=== PATIENT | female | born 1960 | race African-American/Black ===

== ENCOUNTER 2017-04-02 11:50 | Inpatient (IN) | payer MEDICARE ==
[~2017-04-02] VITALS: Ht 162.6 cm; Wt 113.4 kg
[~2017-04-02 11:50] MED LIST: ALBUTEROL SULF8.5 GM INH; AZITHROMYCIN250 MG ORAL; DHEA TABLET1 EACH PO; DILAUDID2 MG ORAL; FOLIC ACID1 MG ORAL; IBUPROFEN800 MG ORAL; KEFLEX500 MG ORAL; METRONIDAZOLE500 MG ORAL; PHENERGAN25 M1 ORAL; PREDISONE PO; PREDNISONE5 MG ORAL; VERAPAMIL ER240 MG ORAL; VITAMIN D1000 UNI2 PO
[2017-04-02 12:10] VITALS: BP 185/98
[2017-04-02 12:52] LABS: BASOPHILS % (AUTO) 0.9 % (0.0-2.0); EOSINOPHILS % (AUTO) 2.3 % (0.0-3.0); LYMPHOCYTES % (AUTO) 31.6 % (20.0-45.0); MEAN CORPUSCULAR HEMOGLOBIN 26.6 PG (27.0-31.0); MEAN CORPUSCULAR HGB CONC 30.7 G/DL (32.0-36.0); MEAN CORPUSCULAR VOLUME 87 FL (80-99); MEAN PLATELET VOLUME 8.7 FL (6.5-10.1); NEUTROPHILS % (AUTO) 58.2 % (45.0-75.0); PLATELET COUNT 315 K/UL (150-450); RED BLOOD COUNT 4.92 M/UL (4.20-5.40); RED CELL DISTRIBUTION WIDTH 13.5 % (11.6-14.8); WHITE BLOOD COUNT 9.7 K/UL (4.8-10.8)
[2017-04-02 13:02] LABS: TROPONIN I < 0.30 ng/mL (<=0.30)
--- NOTE | 2017-04-02 13:02 | Emergency Room Report ---
History of Present Illness General Chief Complaint: Headache Source: Patient, Medical Record Present Illness HPI Patient presents with complaints of headache, chest pain Also has a neuropathy sensation in both of her hands Patient reports that in the past when she gets breakthrough pain like this she requires Phenergan and Dilaudid Has not had to go to the emergency room very frequently She does get pain medications for home by primary physician Headache is a throbbing pain in the forehead area 03/25 it has slowly been worsening over the past several days Chest pain is intermittent at this time pain free however she does get tingling in both of her fingers as well Denies any diarrhea denies any fall or trauma denies any focal weakness Allergies: Coded Allergies: LATEX (Verified Allergy, Shortness of Breath, 10/28/13) Patient History Past Medical History: see triage record Pertinent Family History: none Last Menstrual Period: 4 years ago Reviewed Nursing Documentation: PMH: Agreed, PSxH: Agreed Nursing Documentation-PMH Past Medical History: No History, Except For Hx Cardiac Problems: Yes - MITRAL VALVE PROLAPSE,CHRONIC PAIN Hx Hypertension: Yes Hx Pacemaker: No Hx Asthma: Yes Hx COPD: No Hx Diabetes: No Hx Cancer: No Hx Gastrointestinal Problems: No Hx Dialysis: No Hx Neurological Problems: Yes - PSORIATIC ARTHRITIC Hx Cerebrovascular Accident: No Hx Seizures: No Review of Systems All Other Systems: negative except mentioned in HPI Physical Exam Vital Signs Date Time Temp Pulse Resp B/P Pulse Ox O2 Delivery O2 Flow Rate FiO2 04/02/17 11:59 97.9 85 18 172/97 95 Room Air Sp02 EP Interpretation: reviewed, normal General Appearance: no apparent distress Head: normocephalic, atraumatic Eyes: bilateral eye EOMI, bilateral eye PERRL ENT: hearing grossly normal, normal pharynx, TMs + canals normal, uvula midline Neck: full range of motion, supple, no meningismus, no bony tend Respiratory: lungs clear, normal breath sounds, no rhonchi, no respiratory distress, no retraction, no accessory muscle use Cardiovascular #1: normal peripheral pulses, regular rate, rhythm, no edema, no gallop, no JVD, no murmur Gastrointestinal: normal bowel sounds, non tender, soft, no mass, no organomegaly, non-distended, no guarding, no hernia, no pulsatile mass, no rebound Genitourinary: no CVA tenderness Musculoskeletal: normal inspection Neurologic: oriented x3, responsive, youth worker III-XII nml as tested, motor strength/ tone normal, sensory intact Psychiatric: mood/affect normal Skin: normal color, no rash, warm/dry, palpation normal Lymphatic: normal inspection, no adenopathy Medical Decision Making Diagnostic Impression: Primary Impression: Hypertensive urgency, malignant ER Course Patient is a fairly complex patient with multiple differential to consideration including but not limited to cardiac cardiopulmonary and vascular emergencies After initial intervention and observation patient continues to complain of Headache and general weakness patient feels her heart and blood pressure elevated as well Given the requirement for multiple interventions patient is admitted for further care Labs Test 04/02/17 12:30 White Blood Count 9.7 K/UL (4.8-10.8) Red Blood Count 4.92 M/UL (4.20-5.40) Hemoglobin 13.1 G/DL (12.0-16.0) Hematocrit 42.6 % (37.0-47.0) Mean Corpuscular Volume 87 FL (80-99) Mean Corpuscular Hemoglobin 26.6 PG (27.0-31.0) Mean Corpuscular Hemoglobin Concent 30.7 G/DL (32.0-36.0) Red Cell Distribution Width 13.5 % (11.6-14.8) Platelet Count 315 K/UL (150-450) Mean Platelet Volume 8.7 FL (6.5-10.1) Neutrophils (%) (Auto) 58.2 % (45.0-75.0) Lymphocytes (%) (Auto) 31.6 % (20.0-45.0) Monocytes (%) (Auto) 7.0 % (1.0-10.0) Eosinophils (%) (Auto) 2.3 % (0.0-3.0) Basophils (%) (Auto) 0.9 % (0.0-2.0) Sodium Level 138 mEQ/L (135-145) Potassium Level 3.9 mEQ/L (3.4-4.9) Chloride Level 99 mEQ/L (98-107) Carbon Dioxide Level 30 mEQ/L (20-30) Anion Gap 9 (5-15) Blood Urea Nitrogen 13 mg/dL (7-23) Creatinine 0.8 mg/dL (0.5-0.9) Estimat Glomerular Filtration Rate > 60 mL/min (>60) Glucose Level 95 mg/dL (74-106) Calcium Level 9.2 mg/dL (8.6-10.2) Total Bilirubin 0.7 mg/dL (0.0-1.2) Aspartate Amino Transf (AST/SGOT) 16 U/L (5-40) Alanine Aminotransferase (ALT/SGPT) 15 U/L (3-33) Alkaline Phosphatase 52 U/L (35-104) Total Creatine Kinase 391 U/L (26-140) Creatine Kinase MB 4.0 ng/mL (< 3.8) Creatine Kinase MB Relative Index 1.0 Troponin I < 0.30 ng/mL (<=0.30) Total Protein 7.4 g/dL (6.6-8.7) Albumin 4.1 g/dL (3.5-5.2) Globulin 3.3 g/dL Albumin/Globulin Ratio 1.2 (1.0-2.7) Lipase 17 U/L (< 60) Rhythm Strip Diag. Results EP Interpretation: yes Rate: 78 Rhythm: NSR, no PVC's, no ectopy Chest X-Ray Diagnostic Results Chest X-Ray Diagnostic Results : Chest X-Ray Ordered: Yes # of Views/Limited/Complete: 1 View Indication: Chest Pain EP Interpretation: Yes Interpretation: no consolidation, no effusion, no pneumothorax Impression: No acute disease Interpreting ER Provider: tori jasmine do CT/MRI/US Diagnostic Results CT/MRI/US Diagnostic Results : Impression CT head no acute disease Last Vital Signs Date Time Temp Pulse Resp B/P Pulse Ox O2 Delivery O2 Flow Rate FiO2 04/02/17 11:59 97.9 85 18 172/97 95 Room Air Status: improved Disposition: ADMITTED INPATIENT Condition: Serious Referrals: Juma Hubbard MD (PCP) TORI JASMINE D.O. Apr 02, 2017 13:02
[2017-04-02 13:05] LABS: ALANINE AMINOTRANSFERASE 15 U/L (3-33); ALBUMIN/GLOBULIN RATIO 1.2 (1.0-2.7); ANION GAP 9 (5-15); ASPARTATE AMINO TRANSFERASE 16 U/L (5-40); CALCIUM 9.2 mg/dL (8.6-10.2); CARBON DIOXIDE 30 mEQ/L (20-30); CHLORIDE 99 mEQ/L (98-107); CREATININE 0.8 mg/dL (0.5-0.9); GLOMERULAR FILTRATION RATE > 60 mL/min (>60); HEMOLYSIS 1; LIPASE 17 U/L (< 60); POTASSIUM 3.9 mEQ/L (3.4-4.9); SODIUM 138 mEQ/L (135-145); TOTAL PROTEIN 7.4 g/dL (6.6-8.7)
[2017-04-02] MEDS ORDERED: DiphenhydrAMINE 50mg/ml Inj IVP ONE (13:45)
[2017-04-02 14:05] VITALS: BP 159/90
[2017-04-02] MEDS ORDERED: ISOSORBIDE MONO30 M1 PO (14:59)
[2017-04-02] MEDS ORDERED: LOSARTAN-HCTZ1 EACH ORAL (14:59)
[2017-04-02] MEDS ORDERED: CYCLOBENZAPRINE10 MG ORAL (14:59)
[2017-04-02] MEDS ORDERED: Miralax 17gm pkt ORAL PRN (15:15)
[2017-04-02] MEDS ORDERED: DuoNeb 0.5-3(2.5)mg/3ml neb HHN PRN (15:15)
[2017-04-02] MEDS ORDERED: Enalaprilat 2.5mg/2ml Inj IV PRN (15:15)
[2017-04-02] MEDS ORDERED: Nitroglycerin Subl 0.4mg tab (Bottle Of 25) SL PRN (15:15)
[2017-04-02] MEDS ORDERED: Diltiazem 25mg/5ml IV PRN (15:15)
--- NOTE | 2017-04-02 15:43 | Diagnostic Imaging Report ---
Indication: Chest pain Technique: One view of the chest Comparison: 10/31/2013 Findings: Better inspiration currently. The heart is borderline enlarged. No definite infiltrates, effusions, or congestion Impression: No acute process
[2017-04-02] MEDS ORDERED: Cyclobenzaprine 10mg Tab ORAL PRN (16:30)
--- NOTE | 2017-04-02 16:58 | History & Physical ---
History and Physical History & Physicial HISTORY AND PHYSICAL Patient: EDEN RODRIGUEZ [facility] Rec #: [id number] History and Physical History & Physicial DATE OF ADMISSION: 04/02/2017 Reason for admission: Neck pain and headache HISTORY OF PRESENT ILLNESS: The patient is a 56-year-old very delightful female with a past medical history significant for hypertension, psoriatic arthritis, staph infection, presumed obstructive sleep apnea, myositis, who presents to the [facility] complaining of severe neck and headache since midnight last night. Associated symptoms also include pain radiating to her arms. She denies CP, SOB,dizziness, n/v, palpitations, fevers, chills. Denies any cardiac problems. Shortly after initial evaluation in the emergency, she was admitted to the hospital for intractable pain and accelerated hypertension PAST MEDICAL and SURGICAL HISTORY: As above. History of myositis, presumed obstructive sleep apnea, severe osteoarthritis in joint, status post knee replacement, history of morbid obesity, and hypertension. MEDICATIONS: Medications Dose Route/Sig Max Daily Dose Days Date Category Dose Instructions Isosorbide Mononitrate Er (Isosorbide Mononitrate) 30 Mg Tab.er.24h 30 Mg PO DAILY 04/02/17 Reported Flexeril* (Cyclobenzaprine HCl) 10 Mg Tablet 10 Mg ORAL HS 04/02/17 Reported Losartan-Hctz 100-12.5 Mg Tab (HCTZ/Losartan Potassium) 1 Each Tablet 1 Tab ORAL DAILY 04/02/17 Reported Albuterol Sulfate Mdi* (Albuterol Sulfate*) 8.5 Gm Hfa.aer.ad 2 Puff INH Q4H PRN 09/14/15 Rx Motrin* (Ibuprofen) 800 Mg Tab 800 Mg ORAL THREE TIMES A DAY PRN 14 04/01/15 Rx Dhea Tablet (Prasterone (Dhea)/Calcium Carb) 1 Each Tablet 1 Each PO 10/29/14 Reported Vitamin D (Cholecalciferol (Vitamin D3)) 1,000 Unit Capsule 1,000 Unit PO DAILY 10/28/13 Reported Phenergan* (Promethazine HCl) 25 Mg Tablet 50 Mg ORAL Q6H 10/28/13 Reported Prednisone 5 Mg Tab 2.5 Mg ORAL DAILY 10/28/13 Reported Folic Acid* (Folic Acid) 1 Mg Tablet 1 Mg ORAL DAILY 10/28/13 Reported Dilaudid (Hydromorphone HCl) 2 Mg Tab 2 Mg ORAL Q4H 10/28/13 Reported Calan Sr* (Verapamil HCl) 240 Mg Tablet.er 240 Mg ORAL DAILY 10/28/13 Reported ALLERGIES: LATEX. SOCIAL HISTORY: Denies any smoking, alcohol, or drugs. FAMILY HISTORY: Denies family hx of CVA, DM, CA, AR. REVIEW OF SYSTEMS: Mostly as above. Denies any dysuria, frequency, hematuria, or hematochezia. Denies any hemoptysis or hematochezia. Denies any suicidal or homicidal ideation. Complaining about general body aches. Denies any double vision. Denies any loss of consciousness. Denies any seizure activity. PHYSICAL EXAMINATION: Date Time Temp Pulse Resp B/P Pulse Ox O2 Delivery O2 Flow Rate FiO2 04/02/17 15:10 97.8 04/02/17 14:05 85 17 159/90 99 Nasal Cannula 2.0 04/02/17 13:35 97.8 04/02/17 12:10 96.8 85 14 185/98 98 Room Air 04/02/17 11:59 97.9 85 18 172/97 95 Room Air GENERAL: The patient is awake, responsive, and in no acute distress; however, she feels very tired. HEENT: Pupils are equal and reactive to light. Anicteric. NECK: Supple. No JVD. LUNGS: Decreased air entry at the bases. No expiratory wheezes. HEART: S1 and S2. Distant heart sounds. Normal gallops. ABDOMEN: Soft, nondistended, and tender. Morbidly obese. : No CVA tenderness EXTREMITIES: No cyanosis, clubbing, or edema. NEUROLOGIC: A/O x 3; Cranial nerves II through XII are grossly intact. Motor and strength 5/5 in all extremities. Labs Test 04/02/17 12:30 White Blood Count 9.7 K/UL (4.8-10.8) Red Blood Count 4.92 M/UL (4.20-5.40) Hemoglobin 13.1 G/DL (12.0-16.0) Hematocrit 42.6 % (37.0-47.0) Mean Corpuscular Volume 87 FL (80-99) Mean Corpuscular Hemoglobin 26.6 PG (27.0-31.0) Mean Corpuscular Hemoglobin Concent 30.7 G/DL (32.0-36.0) Red Cell Distribution Width 13.5 % (11.6-14.8) Platelet Count 315 K/UL (150-450) Mean Platelet Volume 8.7 FL (6.5-10.1) Neutrophils (%) (Auto) 58.2 % (45.0-75.0) Lymphocytes (%) (Auto) 31.6 % (20.0-45.0) Monocytes (%) (Auto) 7.0 % (1.0-10.0) Eosinophils (%) (Auto) 2.3 % (0.0-3.0) Basophils (%) (Auto) 0.9 % (0.0-2.0) Sodium Level 138 mEQ/L (135-145) Potassium Level 3.9 mEQ/L (3.4-4.9) Chloride Level 99 mEQ/L (98-107) Carbon Dioxide Level 30 mEQ/L (20-30) Anion Gap 9 (5-15) Blood Urea Nitrogen 13 mg/dL (7-23) Creatinine 0.8 mg/dL (0.5-0.9) Estimat Glomerular Filtration Rate > 60 mL/min (>60) Glucose Level 95 mg/dL (74-106) Calcium Level 9.2 mg/dL (8.6-10.2) Total Bilirubin 0.7 mg/dL (0.0-1.2) Aspartate Amino Transf (AST/SGOT) 16 U/L (5-40) Alanine Aminotransferase (ALT/SGPT) 15 U/L (3-33) Alkaline Phosphatase 52 U/L (35-104) Total Creatine Kinase 391 U/L (26-140) Creatine Kinase MB 4.0 ng/mL (< 3.8) Creatine Kinase MB Relative Index 1.0 Troponin I < 0.30 ng/mL (<=0.30) Total Protein 7.4 g/dL (6.6-8.7) Albumin 4.1 g/dL (3.5-5.2) Globulin 3.3 g/dL Albumin/Globulin Ratio 1.2 (1.0-2.7) Lipase 17 U/L (< 60) ASSESSMENT: 1. Intractable neck pain and headache. 2. History of myositis with elevated CK level. 3. Accelerated Hypertension. 4. Morbid obesity. 5. History of osteoarthritis. 6. Presumed obstructive sleep apnea. 7. Psoriatic arthritis PLAN: admit telemetry pain Medications We will follow up laboratory. Continue current home medications Juma Hubbard MD Apr 02, 2017 16:58
[2017-04-02 20:08] VITALS: BP 159/88
[2017-04-02] MEDS: HYDROmorphone 2mg tab ORAL PRN (21:28)
[2017-04-02] MEDS: Heparin 5000 units/ml inj SUBQ SCH (21:32)
[2017-04-02] MEDS: Promethazine 25mg tab ORAL PRN (21:33)
[2017-04-02 23:59] VITALS: BP 141/80
[2017-04-03 04:10] VITALS: BP 122/73
[2017-04-03] MEDS: Promethazine 25mg tab ORAL PRN ×2 (06:03→17:08)
[2017-04-03] MEDS: HYDROmorphone 2mg tab ORAL PRN ×2 (06:04→17:42)
[2017-04-03 08:22] VITALS: BP 140/77
[2017-04-03 08:28] LABS: BASOPHILS % (AUTO) 0.7 % (0.0-2.0); EOSINOPHILS % (AUTO) 0.7 % (0.0-3.0); MEAN CORPUSCULAR HEMOGLOBIN 27.9 PG (27.0-31.0); MEAN CORPUSCULAR VOLUME 87 FL (80-99); MEAN PLATELET VOLUME 8.4 FL (6.5-10.1); MONOCYTES % (AUTO) 5.3 % (1.0-10.0); NEUTROPHILS % (AUTO) 60.3 % (45.0-75.0); PLATELET COUNT 289 K/UL (150-450); RED BLOOD COUNT 4.78 M/UL (4.20-5.40); RED CELL DISTRIBUTION WIDTH 13.4 % (11.6-14.8); WHITE BLOOD COUNT 10.4 K/UL (4.8-10.8)
[2017-04-03 08:33] LABS: PROTHROMBIN TIME 10.1 SEC (9.30-11.50)
[2017-04-03] MEDS: Heparin 5000 units/ml inj SUBQ SCH ×2 (08:40→20:34)
[2017-04-03 08:42] LABS: TROPONIN I < 0.30 ng/mL (<=0.30)
[2017-04-03 08:52] LABS: MAGNESIUM 1.9 mg/dL (1.7-2.5); PHOSPHORUS 3.4 mg/dL (2.5-4.8); THYROID STIMULATING HORMONE 0.398 uIU/mL (0.300-4.500)
[2017-04-03 09:00] LABS: CHOLESTEROL/HDL RATIO 2.5 (3.3-4.4); CRP QUANT 4.2 mg/dL (< 0.5)
--- NOTE | 2017-04-03 10:03 | Cardiology Progress Note ---
Assessment/Plan Assessment/Plan htn at [facility] difficult to control richie obeisty arm and hand pain not on meds for bp now but bp seem quite well controlled ?!! will observer adn add meds as necessary will repeat bp reading on both ue and lower ext to assure accurate reading use of cpap if recommended by sleep study will leave to dr herrera thank you [phone] Objective Last 24 Hour Vital Signs Date Time Temp Pulse Resp B/P Pulse Ox O2 Delivery O2 Flow Rate FiO2 04/03/17 08:22 98.1 80 22 140/77 91 Room Air 04/03/17 08:00 95 04/03/17 07:05 98.2 04/03/17 04:10 98.2 84 18 122/73 96 Nasal Cannula 2.0 04/03/17 04:00 82 04/03/17 00:00 84 04/02/17 23:59 98.7 87 19 141/80 94 Nasal Cannula 2.0 04/02/17 20:08 98.3 79 18 159/88 93 Nasal Cannula 2.0 04/02/17 20:00 83 04/02/17 17:33 83 14 155/83 97 Room Air 04/02/17 15:10 97.8 04/02/17 14:05 85 17 159/90 99 Nasal Cannula 2.0 04/02/17 13:35 97.8 04/02/17 12:10 96.8 85 14 185/98 98 Room Air 04/02/17 11:59 97.9 85 18 172/97 95 Room Air Intake and Output 04/02/17 04/03/17 19:00 07:00 Intake Total 500 ml Balance 500 ml Intake Oral 0 ml IV Total 500 ml # Voids 2 # Bowel Movements 1 Laboratory Tests Test 04/02/17 12:30 04/03/17 07:45 White Blood Count 9.7 K/UL (4.8-10.8) 10.4 K/UL (4.8-10.8) Red Blood Count 4.92 M/UL (4.20-5.40) 4.78 M/UL (4.20-5.40) Hemoglobin 13.1 G/DL (12.0-16.0) 13.4 G/DL (12.0-16.0) Hematocrit 42.6 % (37.0-47.0) 41.7 % (37.0-47.0) Mean Corpuscular Volume 87 FL (80-99) 87 FL (80-99) Mean Corpuscular Hemoglobin 26.6 PG (27.0-31.0) L 27.9 PG (27.0-31.0) Mean Corpuscular Hemoglobin Concent 30.7 G/DL (32.0-36.0) L 32.0 G/DL (32.0-36.0) Red Cell Distribution Width 13.5 % (11.6-14.8) 13.4 % (11.6-14.8) Platelet Count 315 K/UL (150-450) 289 K/UL (150-450) Mean Platelet Volume 8.7 FL (6.5-10.1) 8.4 FL (6.5-10.1) Neutrophils (%) (Auto) 58.2 % (45.0-75.0) 60.3 % (45.0-75.0) Lymphocytes (%) (Auto) 31.6 % (20.0-45.0) 33.0 % (20.0-45.0) Monocytes (%) (Auto) 7.0 % (1.0-10.0) 5.3 % (1.0-10.0) Eosinophils (%) (Auto) 2.3 % (0.0-3.0) 0.7 % (0.0-3.0) Basophils (%) (Auto) 0.9 % (0.0-2.0) 0.7 % (0.0-2.0) Sodium Level 138 mEQ/L (135-145) Potassium Level 3.9 mEQ/L (3.4-4.9) Chloride Level 99 mEQ/L (98-107) Carbon Dioxide Level 30 mEQ/L (20-30) Anion Gap 9 (5-15) Blood Urea Nitrogen 13 mg/dL (7-23) Creatinine 0.8 mg/dL (0.5-0.9) Estimat Glomerular Filtration Rate > 60 mL/min (>60) Glucose Level 95 mg/dL (74-106) Calcium Level 9.2 mg/dL (8.6-10.2) Total Bilirubin 0.7 mg/dL (0.0-1.2) Aspartate Amino Transf (AST/SGOT) 16 U/L (5-40) Alanine Aminotransferase (ALT/SGPT) 15 U/L (3-33) Alkaline Phosphatase 52 U/L (35-104) Total Creatine Kinase 391 U/L (26-140) H Creatine Kinase MB 4.0 ng/mL (< 3.8) H Creatine Kinase MB Relative Index 1.0 Troponin I < 0.30 ng/mL (<=0.30) < 0.30 ng/mL (<=0.30) Total Protein 7.4 g/dL (6.6-8.7) Albumin 4.1 g/dL (3.5-5.2) Globulin 3.3 g/dL Albumin/Globulin Ratio 1.2 (1.0-2.7) Lipase 17 U/L (< 60) Prothrombin Time 10.1 SEC (9.30-11.50) Prothromb Time International Ratio 1.0 (0.9-1.1) Activated Partial Thromboplast Time 28 SEC (23-33) Phosphorus Level 3.4 mg/dL (2.5-4.8) Magnesium Level 1.9 mg/dL (1.7-2.5) C-Reactive Protein, Quantitative 4.2 mg/dL (< 0.5) H Triglycerides Level 80 mg/dL (< 150) Cholesterol Level 137 mg/dL (< 200) LDL Cholesterol 66 mg/dL (60-99) HDL Cholesterol 55 mg/dL (> 60) Cholesterol/HDL Ratio 2.5 (3.3-4.4) L Thyroid Stimulating Hormone (TSH) 0.398 uIU/mL (0.300-4.500) ÁNGELA CHILDERS Apr 03, 2017 10:03
[2017-04-03 10:48] VITALS: BP_SYST 136; BP_SYST 140; BP_SYST 146; BP_SYST 150; BP_DIAS 73; BP_DIAS 78; BP_DIAS 85; BP_DIAS 91
[2017-04-03 12:00] VITALS: BP 145/82
[2017-04-03] MEDS ORDERED: Verapamil SR 240mg tab ORAL SCH (12:30)
[2017-04-03] MEDS ORDERED: Albuterol 90mcg Inhaler 8gm INH PRN (12:30)
--- NOTE | 2017-04-03 12:39 | Internal Med Progress Note ---
Subjective Physician Name Juma Hubbard Attending Physician Juma Hubbard MD Current Medications Medications (Trade) Dose Ordered Sig/Steve Route PRN Reason Start Time Stop Time Status Last Admin Dose Admin Acetaminophen (Tylenol) 650 mg Q4H PRN ORAL FEVER 04/02/17 15:15 05/02/17 15:14 Albuterol/ Ipratropium (DuoNeb 0.5-3(2.5)mg/3ml) 3 ml Q4H PRN HHN Shortness of Breath 04/02/17 15:15 04/07/17 15:14 Cyclobenzaprine HCl (Flexeril) 10 mg Q8H PRN ORAL MUSCLE SPASMS 04/02/17 16:30 05/02/17 16:29 Diltiazem HCl (Cardizem) 10 mg Q1H PRN IV HR > 120 04/02/17 15:15 05/02/17 15:14 Enalaprilat (Vasotec) 2.5 mg Q6H PRN IV sbp more than 160 04/02/17 15:15 05/02/17 15:14 Heparin Sodium (Porcine) (Heparin 5000 units/ml) 5,000 units EVERY 12 HOURS SUBQ 04/02/17 21:00 05/02/17 20:59 04/03/17 08:40 Hydromorphone HCl (Dilaudid) 2 mg Q4H PRN ORAL PRN PAIN 4-10 04/02/17 15:15 04/09/17 15:14 04/03/17 06:04 Nitroglycerin (Ntg) 0.4 mg Every 5 Minutes PRN SL Prn Chest Pain 04/02/17 15:15 05/02/17 15:14 Ondansetron HCl (Zofran) 4 mg Q6H PRN IVP Nausea & Vomiting 04/02/17 15:15 05/02/17 15:14 Pantoprazole (Protonix) 40 mg DAILY ORAL 04/03/17 09:00 05/03/17 08:59 04/03/17 08:40 Polyethylene Glycol (Miralax) 17 gm DAILYPRN PRN ORAL Constipation 04/02/17 15:15 05/02/17 15:14 Promethazine HCl (Phenergan) 50 mg Q6H PRN ORAL N/V UNRELIEVED BY ZOFRAN 04/02/17 15:15 9/17/17 15:14 04/03/17 06:03 Temazepam (Restoril) 15 mg HSPRN PRN ORAL Insomnia 04/02/17 15:15 04/09/17 15:14 Allergies: Coded Allergies: LATEX (Verified Allergy, Shortness of Breath, 10/28/13) Subjective awake, alert, responsive, less neck pain , still has headache Objective Last Vital Signs Date Time Temp Pulse Resp B/P Pulse Ox O2 Delivery O2 Flow Rate FiO2 04/03/17 12:00 98.8 74 22 145/82 94 Room Air 04/03/17 04:10 2.0 Laboratory Tests Test 04/02/17 12:30 04/03/17 07:45 White Blood Count 9.7 K/UL (4.8-10.8) 10.4 K/UL (4.8-10.8) Red Blood Count 4.92 M/UL (4.20-5.40) 4.78 M/UL (4.20-5.40) Hemoglobin 13.1 G/DL (12.0-16.0) 13.4 G/DL (12.0-16.0) Hematocrit 42.6 % (37.0-47.0) 41.7 % (37.0-47.0) Mean Corpuscular Volume 87 FL (80-99) 87 FL (80-99) Mean Corpuscular Hemoglobin 26.6 PG (27.0-31.0) L 27.9 PG (27.0-31.0) Mean Corpuscular Hemoglobin Concent 30.7 G/DL (32.0-36.0) L 32.0 G/DL (32.0-36.0) Red Cell Distribution Width 13.5 % (11.6-14.8) 13.4 % (11.6-14.8) Platelet Count 315 K/UL (150-450) 289 K/UL (150-450) Mean Platelet Volume 8.7 FL (6.5-10.1) 8.4 FL (6.5-10.1) Neutrophils (%) (Auto) 58.2 % (45.0-75.0) 60.3 % (45.0-75.0) Lymphocytes (%) (Auto) 31.6 % (20.0-45.0) 33.0 % (20.0-45.0) Monocytes (%) (Auto) 7.0 % (1.0-10.0) 5.3 % (1.0-10.0) Eosinophils (%) (Auto) 2.3 % (0.0-3.0) 0.7 % (0.0-3.0) Basophils (%) (Auto) 0.9 % (0.0-2.0) 0.7 % (0.0-2.0) Sodium Level 138 mEQ/L (135-145) Potassium Level 3.9 mEQ/L (3.4-4.9) Chloride Level 99 mEQ/L (98-107) Carbon Dioxide Level 30 mEQ/L (20-30) Anion Gap 9 (5-15) Blood Urea Nitrogen 13 mg/dL (7-23) Creatinine 0.8 mg/dL (0.5-0.9) Estimat Glomerular Filtration Rate > 60 mL/min (>60) Glucose Level 95 mg/dL (74-106) Calcium Level 9.2 mg/dL (8.6-10.2) Total Bilirubin 0.7 mg/dL (0.0-1.2) Aspartate Amino Transf (AST/SGOT) 16 U/L (5-40) Alanine Aminotransferase (ALT/SGPT) 15 U/L (3-33) Alkaline Phosphatase 52 U/L (35-104) Total Creatine Kinase 391 U/L (26-140) H Creatine Kinase MB 4.0 ng/mL (< 3.8) H Creatine Kinase MB Relative Index 1.0 Troponin I < 0.30 ng/mL (<=0.30) < 0.30 ng/mL (<=0.30) Total Protein 7.4 g/dL (6.6-8.7) Albumin 4.1 g/dL (3.5-5.2) Globulin 3.3 g/dL Albumin/Globulin Ratio 1.2 (1.0-2.7) Lipase 17 U/L (< 60) Prothrombin Time 10.1 SEC (9.30-11.50) Prothromb Time International Ratio 1.0 (0.9-1.1) Activated Partial Thromboplast Time 28 SEC (23-33) Phosphorus Level 3.4 mg/dL (2.5-4.8) Magnesium Level 1.9 mg/dL (1.7-2.5) C-Reactive Protein, Quantitative 4.2 mg/dL (< 0.5) H Triglycerides Level 80 mg/dL (< 150) Cholesterol Level 137 mg/dL (< 200) LDL Cholesterol 66 mg/dL (60-99) HDL Cholesterol 55 mg/dL (> 60) Cholesterol/HDL Ratio 2.5 (3.3-4.4) L Thyroid Stimulating Hormone (TSH) 0.398 uIU/mL (0.300-4.500) Intake and Output 04/02/17 04/03/17 19:00 07:00 Intake Total 500 ml Balance 500 ml Intake Oral 0 ml IV Total 500 ml # Voids 2 # Bowel Movements 1 Objective General: No acute distress, awake and alert HEENT: NCAT, sclera anicteric, PERRL, EOMI. Neck: Supple, no significant jugular venous distention, Lungs: Good inspiratory effort, no accessory muscle use,no Wheeze or Rales. Heart: Regular rate and rhythm, normal S1/S2, no murmurs Abdomen: soft, nontender, nondistended. Normoactive bowel sounds. Morbid obesity. / Rectal: Refused and deferred. Extremities: No Cyanosis , clubbing or edema. Neuro: A&O x 3, Able to move all extremities Skin: warm, no rashes or lesions Psych: Normal mood and affect Assessment/Plan Assessment/Plan 1. Intractable neck pain and headache. 2. History of myositis with elevated CK level. 3. Accelerated Hypertension. 4. Morbid obesity. 5. History of osteoarthritis. 6. Presumed obstructive sleep apnea. 7. Psoriatic arthritis PLAN: on telemetry pain Medications We will follow up laboratory. Continue current home medications Juma Hubbard MD Apr 03, 2017 12:39
[2017-04-03] MEDS: Hyzaar 12.5mg/50mg tab ORAL SCH (12:49)
[2017-04-03] MEDS: Imdur 30mg tab ORAL SCH (12:49)
[2017-04-03] MEDS: PredniSONE 5mg tab ORAL SCH (12:49)
--- NOTE | 2017-04-03 13:37 | Consultation ---
History of Present Illness General Date patient seen: Apr 03, 2017 Time patient seen: 12:50 Chief Complaint: Headache Referring physician: dr Hubbard Reason for Consultation: inpatient management Present Illness HPI 56 y/old female with PMH significant for myositis, HTN, presumed JAMEL, morbid obesity, osteoarthritis, phoniatric arthritis, presented to ER with headache and neck pain Headache throbbing, rated 8/10 on a scale 1 to 10, BP elevated 172/97 denied chest pain, dizziness, dyspnea on exertion admitted to palpitations troponin negative CK-[id number] electrolytes and renal parameters stable ECG-NSR, no ischemic changes physical exam unremarkable patient was admitted for further management Allergies: Coded Allergies: LATEX (Verified Allergy, Shortness of Breath, 10/28/13) Medication History Scheduled Azithromycin* (Zithromax*), 250 MG ORAL DAILY Cholecalciferol (Vitamin D3) (Vitamin D), 1,000 UNIT PO DAILY, (Reported) Cyclobenzaprine Hcl* (Flexeril*), 10 MG ORAL HS, (Reported) Folic Acid* (Folic Acid*), 1 MG ORAL DAILY, (Reported) Hydromorphone HCl (Dilaudid), 2 MG ORAL Q4H, (Reported) Isosorbide Mononitrate (Isosorbide Mononitrate Er), 30 MG PO DAILY, (Reported) Losartan/Hydrochlorothiazide (Losartan-Hctz 100-12.5 Mg Tab), 1 TAB ORAL DAILY, (Reported) Prednisone (Prednisone), 2.5 MG ORAL DAILY, (Reported) Promethazine Hcl* (Phenergan*), 50 MG ORAL Q6H, (Reported) Verapamil Hcl* (Calan Sr*), 240 MG ORAL DAILY, (Reported) Scheduled PRN Albuterol Sulfate* (Albuterol Sulfate Mdi*), 2 PUFF INH Q4H PRN for For Cough Ibuprofen* (Motrin*), 800 MG ORAL THREE TIMES A DAY PRN for Moderate Pain (Pain Scale 4-6) Miscellaneous Medications Prasterone (Dhea)/Calcium Carb (Dhea Tablet), 1 EACH PO, (Reported) Patient History History Provided By: Patient Healthcare decision maker Resuscitation status Full Code Advanced Directive on File Past Medical/Surgical History Past Medical/Surgical History: (1) Myositis (2) Morbid obesity (3) Psoriatic arthritis (4) Rhabdomyolysis (5) HTN (hypertension) Review of Systems Constitutional: Reports: weakness Eye: Reports: no symptoms ENT: Reports: no symptoms Respiratory: Reports: no symptoms Cardiovascular: Reports: palpitations Gastrointestinal: Reports: constipation Genitourinary: Reports: no symptoms Musculoskeletal: Reports: muscle pain, muscle stiffness, other - hx of myositis Skin: Reports: no symptoms Psychiatric: Reports: no symptoms Neurological: Reports: headache, paresthesia Endocrine: Reports: no symptoms Hematologic/Lymphatic: Reports: no symptoms Physical Exam General Appearance: no apparent distress, alert - A/A/O x 4 morbidly obese female in NAD , morbidly obese Lines, tubes and drains: peripheral HEENT: normocephalic, atraumatic, anicteric, mucous membranes moist, PERRL Neck: supple Respiratory/Chest: lungs clear, no respiratory distress, no accessory muscle use Cardiovascular/Chest: normal peripheral pulses, normal rate, regular rhythm Abdomen: normal bowel sounds, non tender, soft - obese Extremities: normal range of motion, non-tender, no calf tenderness Skin Exam: warm/dry Neurologic: no motor/sensory deficits, alert, oriented x 3, responsive Musculoskeletal: normal muscle bulk Last 24 Hour Vital Signs Date Time Temp Pulse Resp B/P Pulse Ox O2 Delivery O2 Flow Rate FiO2 04/03/17 12:49 145/82 04/03/17 12:49 145/82 04/03/17 12:00 98.8 74 22 145/82 94 Room Air 04/03/17 12:00 73 04/03/17 10:48 78 146/91 04/03/17 10:48 78 140/85 04/03/17 10:48 78 150/73 04/03/17 10:48 78 136/78 04/03/17 08:22 98.1 80 22 140/77 91 Room Air 04/03/17 08:00 95 04/03/17 07:05 98.2 04/03/17 04:10 98.2 84 18 122/73 96 Nasal Cannula 2.0 04/03/17 04:00 82 04/03/17 00:00 84 04/02/17 23:59 98.7 87 19 141/80 94 Nasal Cannula 2.0 04/02/17 20:08 98.3 79 18 159/88 93 Nasal Cannula 2.0 04/02/17 20:00 83 04/02/17 17:33 83 14 155/83 97 Room Air 04/02/17 15:10 97.8 04/02/17 14:05 85 17 159/90 99 Nasal Cannula 2.0 Intake and Output 04/02/17 04/03/17 19:00 07:00 Intake Total 500 ml Balance 500 ml Intake Oral 0 ml IV Total 500 ml # Voids 2 # Bowel Movements 1 Laboratory Tests Test 04/03/17 07:45 White Blood Count 10.4 K/UL (4.8-10.8) Red Blood Count 4.78 M/UL (4.20-5.40) Hemoglobin 13.4 G/DL (12.0-16.0) Hematocrit 41.7 % (37.0-47.0) Mean Corpuscular Volume 87 FL (80-99) Mean Corpuscular Hemoglobin 27.9 PG (27.0-31.0) Mean Corpuscular Hemoglobin Concent 32.0 G/DL (32.0-36.0) Red Cell Distribution Width 13.4 % (11.6-14.8) Platelet Count 289 K/UL (150-450) Mean Platelet Volume 8.4 FL (6.5-10.1) Neutrophils (%) (Auto) 60.3 % (45.0-75.0) Lymphocytes (%) (Auto) 33.0 % (20.0-45.0) Monocytes (%) (Auto) 5.3 % (1.0-10.0) Eosinophils (%) (Auto) 0.7 % (0.0-3.0) Basophils (%) (Auto) 0.7 % (0.0-2.0) Prothrombin Time 10.1 SEC (9.30-11.50) Prothromb Time International Ratio 1.0 (0.9-1.1) Activated Partial Thromboplast Time 28 SEC (23-33) Phosphorus Level 3.4 mg/dL (2.5-4.8) Magnesium Level 1.9 mg/dL (1.7-2.5) Troponin I < 0.30 ng/mL (<=0.30) C-Reactive Protein, Quantitative 4.2 mg/dL (< 0.5) H Triglycerides Level 80 mg/dL (< 150) Cholesterol Level 137 mg/dL (< 200) LDL Cholesterol 66 mg/dL (60-99) HDL Cholesterol 55 mg/dL (> 60) Cholesterol/HDL Ratio 2.5 (3.3-4.4) L Thyroid Stimulating Hormone (TSH) 0.398 uIU/mL (0.300-4.500) Height (Feet): 5 Height (Inches): 4.00 Weight (Pounds): 250 Medications Current Medications Medications (Trade) Dose Ordered Sig/Steve Route PRN Reason Start Time Stop Time Status Last Admin Dose Admin Acetaminophen (Tylenol) 650 mg Q4H PRN ORAL FEVER 04/02/17 15:15 05/02/17 15:14 Albuterol/ Ipratropium (DuoNeb 0.5-3(2.5)mg/3ml) 3 ml Q4H PRN HHN Shortness of Breath 04/02/17 15:15 04/07/17 15:14 Cyclobenzaprine HCl (Flexeril) 10 mg Q8H PRN ORAL MUSCLE SPASMS 04/02/17 16:30 05/02/17 16:29 Diltiazem HCl (Cardizem) 10 mg Q1H PRN IV HR > 120 04/02/17 15:15 05/02/17 15:14 Enalaprilat (Vasotec) 2.5 mg Q6H PRN IV sbp more than 160 04/02/17 15:15 05/02/17 15:14 Folic Acid (Folate) 1 mg DAILY ORAL 04/04/17 09:00 05/04/17 08:59 HCTZ/Losartan Potassium (Hyzaar 50-12.5) 2 tab DAILY ORAL 04/03/17 12:30 05/03/17 12:29 04/03/17 12:49 Heparin Sodium (Porcine) (Heparin 5000 units/ml) 5,000 units EVERY 12 HOURS SUBQ 04/02/17 21:00 05/02/17 20:59 04/03/17 08:40 Hydromorphone HCl (Dilaudid) 2 mg Q4H PRN ORAL Severe Pain (Pain Scale 7-10) 04/03/17 12:30 04/09/17 15:14 Ibuprofen (Motrin) 800 mg Q8H PRN ORAL Moderate Pain (Pain Scale 4-6) 04/03/17 12:30 05/03/17 12:29 Isosorbide Mononitrate (Imdur) 30 mg DAILY ORAL 04/03/17 12:30 05/03/17 12:29 04/03/17 12:49 Nitroglycerin (Ntg) 0.4 mg Every 5 Minutes PRN SL Prn Chest Pain 04/02/17 15:15 05/02/17 15:14 Ondansetron HCl (Zofran) 4 mg Q6H PRN IVP Nausea & Vomiting 04/02/17 15:15 05/02/17 15:14 Pantoprazole (Protonix) 40 mg DAILY ORAL 04/03/17 09:00 05/03/17 08:59 04/03/17 08:40 Polyethylene Glycol (Miralax) 17 gm DAILYPRN PRN ORAL Constipation 04/02/17 15:15 05/02/17 15:14 Prednisone (predniSONE) 2.5 mg DAILY ORAL 04/03/17 12:30 05/03/17 12:29 04/03/17 12:49 Promethazine HCl (Phenergan) 50 mg Q6H PRN ORAL N/V UNRELIEVED BY ZOFRAN 04/02/17 15:15 05/02/17 15:14 04/03/17 06:03 Temazepam (Restoril) 15 mg HSPRN PRN ORAL Insomnia 04/02/17 15:15 04/09/17 15:14 Assessment/Plan Assessment/Plan ASSESSMENT intractable neck pain and headache HTN urgency presumed JAMEL myositis with elevated CK osteoarthritis psoriatic arthritis morbid obesity PLAN OF CARE tele BP management with combo ARB/diuretic and CCB cardio follows CT head pain management ( combined approach) elevated BP likely partially at least to uncontrolled pain currently with pain controlled --BP stable lipid panel stable trend CK pulse oximetry stable on RA pulmonary toilet prn patient was encouraged to have sleep study as outpatient DVT GI prophylaxis Bowel regimen case discussed and evaluated by supervising physician Ozzy ([facility])Noa NP Apr 03, 2017 13:37
[2017-04-03 16:36] VITALS: BP 142/75
--- NOTE | 2017-04-03 17:00 | Consultation ---
DATE OF CONSULTATION: 04/03/2017 CARDIOLOGY CONSULTATION CONSULTING PHYSICIAN: Haroldo Acuna M.D. REFERRING PHYSICIAN: Juma Hubbard M.D. REASON FOR REFERRAL: Hypertension. HISTORY OF PRESENT ILLNESS: This is a 56-year-old female, who has a history of multiple medical problems, initially on the day of admission woke up with a significant amount of pain in her neck and her arms and subsequently went to Dr. Hubbard's office. Because of her blood pressure being significantly elevated, she was brought into the emergency room here at [facility] where she has been admitted. She has had problems with blood pressure control apparently and she has had trials with losartan, Maxzide, and verapamil more recently. Two to three days prior to admission, she had a change in her blood pressure medication that had been performed by Dr. Hubbard. She really does not have any chest pain. No PND. No orthopnea. She does have palpitation. She has no dizziness on standing. There is no dyspnea on exertion. No chest pain. PAST MEDICAL HISTORY: She has a history of hypertension, sleep apnea, chronic myopathy, chronic joint disease, vitamin B12 deficiency, osteoarthritis, colonic polyp, and constipation as well as psoriatic arthritis and myositis. Followed previously by . History of knee replacement and morbid obesity as well. SOCIAL HISTORY: She does not smoke and does not drink. No drug use. 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 REVIEW OF SYSTEMS: Gastrointestinal: She denies any nausea, vomiting, diarrhea, or constipation. Genitourinary: Denies. Pulmonary: Negative. Constitutional: Negative. Neurologic: Negative. Musculoskeletal: As mentioned with pain in both arms. PHYSICAL EXAMINATION: GENERAL: Shows to be morbidly obese female, middle aged. No apparent respiratory distress. NECK: Supple. No jugular venous distention. No abdominojugular reflux noted. LUNGS: Clear to auscultation and percussion. CARDIAC: Examination S1 is normal. S2 is normal. Regular rate and rhythm. No heaves, thrills, or gallops noted. ABDOMEN: Abdomen is soft and obese. Positive bowel sounds and nontender. EXTREMITIES: There is no clubbing and cyanosis. No edema of the lower extremities. She has good pulses distally. LABORATORY VALUES: A chest x-ray performed in the emergency room shows no acute processes. Her blood tests, white count of 10.4, hemoglobin 13.4, and platelet count of 289,000. Sodium is 138, potassium 3.9, chloride 99, bicarbonate 30, BUN of 13, creatinine 0.8, and glucose of 95. CK of 390. She had two sets of cardiac enzymes where all are negative. CRP was 4.2. Total cholesterol 137 with LDL of 66 and HDL of 55. TSH is 0.398. Lipase was 17. Magnesium 1.9. Phosphorus of 3.4. Coags, INR is 1.2. Her electrocardiogram shows normal sinus rhythm, normal QRS axis. There may be some voltage criteria for left ventricular hypertrophy, otherwise leftward axis. The telemetry shows sinus rhythm. Her vital signs, the patient's blood pressure for the past few hours is around 122/73 to 140/77, She has had reading of 185/98 at the time of initial presentation. ASSESSMENT: 1. Hypertension, difficult to control. 2. Sleep apnea. 3. Obesity. 4. Bilateral upper extremity pain. 5. History of myositis. Dr. Hubbard, this patient was seen in cardiac consultation. The patient has been on several different types of medications that are previously according to herself. on presentation to the emergency room although she was under stress of pain, her blood pressure was elevated subsequently. Her blood pressure readings have been actually pretty well controlled without any medications being administered. I suspect secondary component of pain is likely contributing factor to the patient's blood pressure of course sleep apnea could be a secondary cause of hypertension as well. The blood pressure is perfectly fine at this time. I will follow the patient along with you. Recommendation for further additional blood pressure medications as becomes necessary. Haroldo Acuna M.D. DR: CODY JOB#: [id number] CC:
[2017-04-03 20:00] VITALS: BP 126/74
[2017-04-04 00:11] VITALS: BP 105/67
[2017-04-04 04:30] VITALS: BP 119/65
[2017-04-04] MEDS: Promethazine 25mg tab ORAL PRN (05:58)
[2017-04-04] MEDS: HYDROmorphone 2mg tab ORAL PRN (05:58)
[2017-04-04 08:00] VITALS: BP 128/68
[2017-04-04] MEDS: Imdur 30mg tab ORAL SCH (08:54)
[2017-04-04] MEDS: Hyzaar 12.5mg/50mg tab ORAL SCH (08:55)
[2017-04-04] MEDS: PredniSONE 5mg tab ORAL SCH (08:56)
[2017-04-04] MEDS: Heparin 5000 units/ml inj SUBQ SCH (09:12)
--- NOTE | 2017-04-04 09:23 | Cardiology Progress Note ---
Assessment/Plan Assessment/Plan htn at [facility] difficult to control richie obeisty arm and hand pain bp low on Isordil and hyzaar will dc Isordil for now cpap use encouraged ok to shower if bp is higher later to day Subjective Cardiovascular: Denies: chest pain, lightheadedness, palpitations Respiratory: Denies: shortness of breath Gastrointestinal/Abdominal: Denies: abdominal pain Genitourinary: Denies: burning Objective Last 24 Hour Vital Signs Date Time Temp Pulse Resp B/P Pulse Ox O2 Delivery O2 Flow Rate FiO2 04/04/17 08:55 119/65 04/04/17 08:54 119/65 04/04/17 07:28 97.0 04/04/17 04:30 97.0 62 20 119/65 94 Room Air 04/04/17 04:00 70 04/04/17 00:11 97.3 78 20 105/67 93 Room Air 04/04/17 00:00 84 04/03/17 22:19 98.1 04/03/17 20:00 82 04/03/17 20:00 96.7 82 20 126/74 94 Room Air 04/03/17 19:58 Room Air 21 04/03/17 19:57 95 Room Air 21 04/03/17 19:56 90 18 Room Air 21 04/03/17 16:36 98.1 80 22 142/75 94 Room Air 04/03/17 16:00 79 04/03/17 12:49 145/82 04/03/17 12:49 145/82 04/03/17 12:00 98.8 74 22 145/82 94 Room Air 04/03/17 12:00 73 04/03/17 10:48 78 146/91 04/03/17 10:48 78 140/85 04/03/17 10:48 78 150/73 04/03/17 10:48 78 136/78 General Appearance: alert Neck: supple Cardiovascular: normal rate, regular rhythm Respiratory/Chest: lungs clear, normal breath sounds Abdomen: normal bowel sounds, non tender, soft Extremities: no swelling Intake and Output 04/03/17 04/04/17 19:00 07:00 # Voids 5 1 Laboratory Tests Test 04/04/17 07:55 Erythrocyte Sedimentation Rate Pending Anti-Nuclear Antibody Screen Pending F-Actin IgG Antibody Pending HLA-B27 Pending ÁNGELA CHILDERS Apr 04, 2017 09:23
--- NOTE | 2017-04-04 11:06 | Pulmonology Progress Note ---
Assessment/Plan Assessment/Plan ASSESSMENT intractable neck pain and headache HTN urgency presumed JAMEL myositis with elevated CK osteoarthritis psoriatic arthritis morbid obesity PLAN OF CARE tele BP management with combo ARB/diuretic and CCB, stable cardio follows CT head pain management ( combined approach) -working, pain improved and controlled elevated BP likely, partially at least, to uncontrolled pain currently with pain controlled --BP stable lipid panel stable trend CK pulse oximetry stable on RA pulmonary toilet prn patient was encouraged to have sleep study as outpatient ( had one few eyars ago never got a CPAP) per PMD as outpatient refer to yayo ray DVT GI prophylaxis Bowel regimen case discussed and evaluated by supervising physician Subjective Allergies: Coded Allergies: LATEX (Verified Allergy, Shortness of Breath, 10/28/13) Subjective no CP, no SOB BP stable Objective Last 24 Hour Vital Signs Date Time Temp Pulse Resp B/P Pulse Ox O2 Delivery O2 Flow Rate FiO2 04/04/17 08:55 119/65 04/04/17 08:54 119/65 04/04/17 08:00 97.3 71 20 128/68 94 Room Air 04/04/17 08:00 79 04/04/17 07:28 97.0 04/04/17 04:30 97.0 62 20 119/65 94 Room Air 04/04/17 04:00 70 04/04/17 00:11 97.3 78 20 105/67 93 Room Air 04/04/17 00:00 84 04/03/17 22:19 98.1 04/03/17 20:00 82 04/03/17 20:00 96.7 82 20 126/74 94 Room Air 04/03/17 19:58 Room Air 21 04/03/17 19:57 95 Room Air 21 04/03/17 19:56 90 18 Room Air 21 04/03/17 16:36 98.1 80 22 142/75 94 Room Air 04/03/17 16:00 79 04/03/17 12:49 145/82 04/03/17 12:49 145/82 04/03/17 12:00 98.8 74 22 145/82 94 Room Air 04/03/17 12:00 73 Intake and Output 04/03/17 04/04/17 19:00 07:00 # Voids 5 1 General Appearance: no acute distress, other - A/A/O morbidly obese AA female HEENT: normocephalic, atraumatic, anicteric, mucous membranes moist, PERRL Respiratory/Chest: lungs clear, no respiratory distress, no accessory muscle use Cardiovascular: normal rate - SR on tele , regular rhythm, other - distant heart sounds Abdomen: normal bowel sounds, soft, non tender - obese Extremities: no edema, pedal pulses normal Neurologic/Psychiatric: no motor/sensory deficits, alert, oriented x 3, responsive Musculoskeletal: normal muscle bulk Laboratory Tests 04/04/17 07:55: Erythrocyte Sedimentation Rate 32H, Anti-Nuclear Antibody Screen [Pending], F- Actin IgG Antibody [Pending], HLA-B27 [Pending] Current Medications Medications (Trade) Dose Ordered Sig/Steve Route PRN Reason Start Time Stop Time Status Last Admin Dose Admin Acetaminophen (Tylenol) 650 mg Q4H PRN ORAL FEVER 04/02/17 15:15 05/02/17 15:14 Albuterol/ Ipratropium (DuoNeb 0.5-3(2.5)mg/3ml) 3 ml Q4H PRN HHN Shortness of Breath 04/02/17 15:15 04/07/17 15:14 Cyclobenzaprine HCl (Flexeril) 10 mg Q8H PRN ORAL MUSCLE SPASMS 04/02/17 16:30 05/02/17 16:29 Diltiazem HCl (Cardizem) 10 mg Q1H PRN IV HR > 120 04/02/17 15:15 05/02/17 15:14 Enalaprilat (Vasotec) 2.5 mg Q6H PRN IV sbp more than 160 04/02/17 15:15 05/02/17 15:14 Folic Acid (Folate) 1 mg DAILY ORAL 04/04/17 09:00 05/04/17 08:59 04/04/17 08:56 HCTZ/Losartan Potassium (Hyzaar 50-12.5) 2 tab DAILY ORAL 04/03/17 12:30 05/03/17 12:29 04/04/17 08:55 Heparin Sodium (Porcine) (Heparin 5000 units/ml) 5,000 units EVERY 12 HOURS SUBQ 04/02/17 21:00 05/02/17 20:59 04/04/17 09:12 Hydromorphone HCl (Dilaudid) 2 mg Q4H PRN ORAL Severe Pain (Pain Scale 7-10) 04/03/17 12:30 04/09/17 15:14 04/04/17 05:58 Ibuprofen (Motrin) 800 mg Q8H PRN ORAL Moderate Pain (Pain Scale 4-6) 04/03/17 12:30 05/03/17 12:29 04/03/17 20:32 Nitroglycerin (Ntg) 0.4 mg Every 5 Minutes PRN SL Prn Chest Pain 04/02/17 15:15 05/02/17 15:14 Ondansetron HCl (Zofran) 4 mg Q6H PRN IVP Nausea & Vomiting 04/02/17 15:15 05/02/17 15:14 Pantoprazole (Protonix) 40 mg DAILY ORAL 04/03/17 09:00 05/03/17 08:59 04/04/17 08:57 Polyethylene Glycol (Miralax) 17 gm DAILYPRN PRN ORAL Constipation 04/02/17 15:15 05/02/17 15:14 Prednisone (predniSONE) 2.5 mg DAILY ORAL 04/03/17 12:30 05/03/17 12:29 04/04/17 08:56 Promethazine HCl (Phenergan) 50 mg Q6H PRN ORAL N/V UNRELIEVED BY ZOFRAN 04/02/17 15:15 05/02/17 15:14 04/04/17 05:58 Temazepam (Restoril) 15 mg HSPRN PRN ORAL Insomnia 04/02/17 15:15 04/09/17 15:14 [facility] Apr 04, 2017 11:06
--- NOTE | 2017-04-04 11:38 | Internal Med Progress Note ---
Subjective Physician Name Juma Hubbard Attending Physician Juma Hubbard MD Current Medications Medications (Trade) Dose Ordered Sig/Steve Route PRN Reason Start Time Stop Time Status Last Admin Dose Admin Acetaminophen (Tylenol) 650 mg Q4H PRN ORAL FEVER 04/02/17 15:15 05/02/17 15:14 Albuterol/ Ipratropium (DuoNeb 0.5-3(2.5)mg/3ml) 3 ml Q4H PRN HHN Shortness of Breath 04/02/17 15:15 04/07/17 15:14 Cyclobenzaprine HCl (Flexeril) 10 mg Q8H PRN ORAL MUSCLE SPASMS 04/02/17 16:30 05/02/17 16:29 Diltiazem HCl (Cardizem) 10 mg Q1H PRN IV HR > 120 04/02/17 15:15 05/02/17 15:14 Enalaprilat (Vasotec) 2.5 mg Q6H PRN IV sbp more than 160 04/02/17 15:15 05/02/17 15:14 Folic Acid (Folate) 1 mg DAILY ORAL 04/04/17 09:00 05/04/17 08:59 04/04/17 08:56 HCTZ/Losartan Potassium (Hyzaar 50-12.5) 2 tab DAILY ORAL 04/03/17 12:30 05/03/17 12:29 04/04/17 08:55 Heparin Sodium (Porcine) (Heparin 5000 units/ml) 5,000 units EVERY 12 HOURS SUBQ 04/02/17 21:00 05/02/17 20:59 04/04/17 09:12 Hydromorphone HCl (Dilaudid) 2 mg Q4H PRN ORAL Severe Pain (Pain Scale 7-10) 04/03/17 12:30 04/09/17 15:14 04/04/17 05:58 Ibuprofen (Motrin) 800 mg Q8H PRN ORAL Moderate Pain (Pain Scale 4-6) 04/03/17 12:30 05/03/17 12:29 04/03/17 20:32 Nitroglycerin (Ntg) 0.4 mg Every 5 Minutes PRN SL Prn Chest Pain 04/02/17 15:15 05/02/17 15:14 Ondansetron HCl (Zofran) 4 mg Q6H PRN IVP Nausea & Vomiting 04/02/17 15:15 05/02/17 15:14 Pantoprazole (Protonix) 40 mg DAILY ORAL 04/03/17 09:00 05/03/17 08:59 04/04/17 08:57 Polyethylene Glycol (Miralax) 17 gm DAILYPRN PRN ORAL Constipation 04/02/17 15:15 05/02/17 15:14 Prednisone (predniSONE) 2.5 mg DAILY ORAL 04/03/17 12:30 05/03/17 12:29 04/04/17 08:56 Promethazine HCl (Phenergan) 50 mg Q6H PRN ORAL N/V UNRELIEVED BY ZOFRAN 04/02/17 15:15 05/02/17 15:14 04/04/17 05:58 Temazepam (Restoril) 15 mg HSPRN PRN ORAL Insomnia 04/02/17 15:15 04/09/17 15:14 Allergies: Coded Allergies: LATEX (Verified Allergy, Shortness of Breath, 10/28/13) Subjective awake, alert, responsive, No neck pain ,No headache, feeling good Objective Last Vital Signs Date Time Temp Pulse Resp B/P Pulse Ox O2 Delivery O2 Flow Rate FiO2 04/04/17 08:55 119/65 04/04/17 08:00 97.3 71 20 94 Room Air 04/03/17 19:58 21 04/03/17 04:10 2.0 Laboratory Tests Test 04/04/17 07:55 Erythrocyte Sedimentation Rate 32 MM/HR (0-30) H Anti-Nuclear Antibody Screen Pending F-Actin IgG Antibody Pending HLA-B27 Pending Intake and Output 04/03/17 04/04/17 19:00 07:00 # Voids 5 1 Objective General: No acute distress, awake and alert HEENT: NCAT, sclera anicteric, PERRL, EOMI. Neck: Supple, no significant jugular venous distention, Lungs: Good inspiratory effort, no accessory muscle use,no Wheeze. Heart: Regular rate and rhythm, normal S1/S2, no murmurs Abdomen: soft, nontender, nondistended. Normoactive bowel sounds. Morbid obesity. / Rectal: Refused and deferred. Extremities: No Cyanosis , clubbing or edema. Neuro: A&O x 3, Able to move all extremities Skin: warm, no rashes or lesions Psych: Normal mood and affect Assessment/Plan Assessment/Plan 1. Intractable neck pain and headache. 2. History of myositis with elevated CK level. 3. Accelerated Hypertension. 4. Morbid obesity. 5. History of osteoarthritis. 6. Presumed obstructive sleep apnea. 7. Psoriatic arthritis PLAN: on telemetry pain Medications We will follow up laboratory. Continue current home medications DC home today Juma Hubbard MD Apr 04, 2017 11:38
[2017-04-04 12:00] VITALS: BP 125/70
--- NOTE | 2017-04-04 17:12 | Cardiology Report ---
APPROVED REPORT EKG Measurement Heart [id number] [place] [id number] [id number] Normal sinus rhythm Voltage criteria for left ventricular hypertrophy Nonspecific T wave abnormality Prolonged QT Abnormal ECG
--- NOTE | 2017-04-05 05:15 | Progress Note ---
DATE: 04/04/2017 NOTE: POOR AUDIO SUBJECTIVE: The patient is awake, alert, afebrile, and hemodynamically stable and being discharged today. The case has been discussed in detail yesterday with the primary care physician autoimmune were ordered. PHYSICAL EXAMINATION: VITAL SIGNS: Blood pressure 119/65, pulse is 79, respirations 20, and temperature 97.3 degrees. HEENT: Eyes were normal. ENT, mucous membranes were moist and intact. NECK: Supple with no JVD without lymph nodes. LUNGS: Clear. HEART: Normal sounds with regular heartbeat. ABDOMEN: Soft and nontender with normal bowel sounds. Obese. EXTREMITIES: Warm without cyanosis, clubbing, or edema. During the examination, palpation of shoulder, elbow, wrist, MCP, PIP, as well as passive range of motion including hips, knees, ankles, and joints . The patient has no warmth and no tender joints except left knee. There is some tenderness that can be obtained also in the left wrist. LABORATORY DATA: Hemoglobin is 13.4, hematocrit 41.7 with MCV of 87, WBC of 10.4, and platelets 289,000 and sed rate is 32. Other laboratory data available for today that includes PILY antibody and antibody were not performed. IMPRESSION: The patient has diffuse bilateral symmetrical articular pain associated with morning stiffness, poor sleep, and waking up tired as well as and problem with concentration and elicits more problem of memory fitting the criteria of fibromyalgia. In addition, the patient has a long history of psoriatic arthritis without psoriatic skin disease. In addition, and DAP NTP are not involved as well. HNA B27 is negative as well. In addition, the patient does not have hyperuricemia diabetes mellitus. PLAN: The patient will continue to be followed by her legal support assistant. She is on Enbrel 40 mg subcutaneous. The patient does have some medication for fibromyalgia possibility of using Eloxatine 30 mg daily in addition to and she will discuss it with legal support assistant. Shiraz Almanza M.D. DR: RISHABH JOB#: [id number] CC:
--- NOTE | 2017-04-05 08:09 | Diagnostic Imaging Report ---
Indications: Headaches Technique: Spiral acquisitions obtained through the brain. Angled axial and coronal 5 x 5 mm slices were reconstructed. Total dose length product 1432 mGycm. CTDI vol(s) 70 mGy. Dose reduction achieved using automated exposure control Comparison: None Findings: No acute hemorrhage or edema. No mass effect or midline shift. Normal vargas-white differentiation. Intact calvarium. Visualized orbits and sinuses are unremarkable. Old lacunar infarct is seen in the right basal ganglia region. Impression: Negative for acute intracranial bleed or mass effect Old right basal ganglia lacunar infarct The CT scanner at [facility] is accredited by the [employer] and the scans are performed using protocols designed to limit radiation exposure to as low as reasonably achievable to attain images of sufficient resolution adequate for diagnostic evaluation.
--- NOTE | 2017-04-05 11:01 | Consultation ---
DATE OF CONSULTATION: 04/03/2017 RHEUMATOLOGICAL CONSULTATION CONSULTING PHYSICIAN: Shiraz Almanza M.D. REASON FOR CONSULTATION: I was asked by Dr. Becerra to assess this 56-year-old patient because of the presence of psoriatic arthritis. History Of Present Illness: The patient has a long-standing chronic 00:32 disease in 2004. By that time, she was under the care of [facility]. She developed diffuse articular pain affecting mainly upper extremities without any 01:12 in addition to the pain, the patient had total CK of 29,000. 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 Few days later, she switched insurance and had been following at [facility]. She initially was placed on methotrexate, but was unable to tolerate it because of nausea, vomiting, and diarrhea. She 02:10 on two different occasions, which did not yield the expected result. At that time, she also on 60 mg of prednisone. She then switched the healthcare sales representative who has placed her on Imuran. She has been on Imuran now for several years with improvement into 02:49 clinical criteria for the patient who is having total CK went from 29,000 to the level of 300 and 02:57 associated with total CK, which was diffuse muscle belly pain in the upper and lower extremities, markedly improved. She was treated by Dilaudid high dose four times daily. She is now only on two times a day and able to ambulate at least half a block. However, diagnosis for 03:30 and the patient does not have skin psoriasis. According to the patient, she underwent DNA analysis of and was found to have cluster of associated psoriatic arthritis and was given the diagnosis of psoriatic arthritis, but she denied any skin disease 04:06 from the pigmentation in the gluteal area. Past Medical History: The patient has a long-standing hypertension. She underwent two sections 26 years ago. She underwent right total knee replacement four years ago in addition to pain and joint pain. She is 04:54 high blood pressure by multiple medications including enalapril and diltiazem. She does have cyclobenzaprine 10 mg p.o. t.i.d. 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 Family History: Her mother in a 05:32. Father at the age of 92 for 05:36. She has one brother with 05:44 who also has elevated CK. She has 2 sisters, 1 of them has lung CA and the other sister in good health. She has 2 sons, none of them has connective tissue disease. SOCIAL HISTORY: She is . She was born in [place]. She has been on disability now for many years. 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. HABITS: The patient does not smoke, drink, or use illicit drugs. Review Of Systems: Cardiovascular: The patient denied any chest pain. She has shortness of breath on exertion only and she attributed to her weight. She has no palpitation and no dizziness. Pulmonary: The patient denied any cough, wheezing, or expectoration. Gastrointestinal: Her appetite is moderate. Her weight is stable. She has no dysphagia or dyspepsia. She received pantoprazole. Her bowel movements are five a week. Joints: The only joint which is swollen is the right knee where she underwent total knee replacement 07:07 remained warm and tender since surgery. She has multiple joints, which are painful that include both the MCP and PIP. She has pain in both knees particularly after ambulation of certain distance 07:30. Genitourinary: The patient denied any dysuria or frequency. She has mild stress incontinence and nocturia 07:45. She has no cold sensitivity, photosensitivity, dry eyes, dry mouth, or alopecia. Central Nervous System: Her sleep is of good quality over the last year only. She has no numbness, tingling, seizure disorder, and has no headache. PHYSICAL EXAMINATION: VITAL SIGNS: Blood pressure is 150/73, pulse is 78, respirations 22, and temperature 98.2 degrees. HEENT: Eyes were normal. Pupils were round, equal, and reactive to light. Sclerae were white. Conjunctiva was pink. Extraocular movements were normal. Temporal arteries were palpable bilaterally. There was no bilateral temporal wasting. Visual culp to confrontation were normal. Neglect sign was negative. ENT, mucous membranes were not dehydrated. Auditory canals were clear and tympanic membranes could not be visualized. Nasal cavity was not congested. Nasal septum was intact. Soft palate was free of ulcerations. Pharynx was clear from exudate or tonsillar hypertrophy. Uvula indu to phonation. Tongue was moist, midline, and normally papillated. In particular, no involvement of any of the nasal mucosa, free of ulceration. NECK: Supple. There was no goiter. No mass. No lymphadenopathy. There was no JVD. No bruits. Carotid upstroke was 2+. LUNGS: Clear. PMI was fifth left intercostal space in midclavicular line. There was normal S1 and normal S2. There was no murmur. No arrhythmia. No S3. No S4. No pericardial rub. ABDOMEN: Soft, obese, and nontender without organomegaly. There were no masses palpable. There was normal bowel sounds without bruits. There was no guarding. No rebound tenderness. No ascites. No hernia. No CVA tenderness. Liver span was 8 cm, mostly nontender. Abdomen was obese. EXTREMITIES: No cyanosis, no clubbing, and no edema. EXTREMITIES: Warm. Neurological: Reflexes in biceps, triceps, and brachioradialis were present. Patellar retinaculum were present. Plantar were in flexion. Cranial nerves from II through XII were symmetric and equal. Cerebellar function, gait, [id number], rapid alternating movements, Romberg exam was not performed by the patient. There was no tremor. No nystagmus. No extrapyramidal rigidity. Sensory exam to pinprick, cotton touch, position are grossly normal. Motor strength surprisingly was 5/5 against resistance in upper and lower extremities in proximal and distal joint examination. Passive range of motion of shoulder, elbow, wrist, MCP, PIP, and DIP were normal. There is no loss of hyperextension. Passive range of motion of both hips abduction to 80 degrees and internal rotation to 20. Passive range of motion of the left knee is normal. There was no 10:56 muscle wasting and popliteal fossa was not 11:03. The right knee was warm and slightly swollen with thickened synovium. Examination of both ankles and feet were normal. LABORATORY DATA: Hemoglobin is 13.9, hematocrit 42.6 with MCV of 87, WBC of 9.7, and platelet is 315,000. Her BUN and creatinine is 13 and 0.8 respectively. Her sodium is 138, potassium 3.9, chloride 99, and CO2 is 30. Her liver function tests are normal. However, her total CK is 391. Her total MB was 4.0. Troponin was undetected. Her CRP and her liver function tests were normal. Impression: The patient has connective tissue disease, otherwise nonclassified, however, the patient underwent extensive workup 12:47 psoriatic arthritis, basic DNA analysis. It is unclear, but 13:01 challenge. The patient is receiving immunosuppression therapy that improved her symptom as well as laboratory tests 13:25 psoriatic arthritis without skin disease and without classical joint involvement, sacroiliac joint, thoracolumbar spine, and without 13:44 changes. It is to recall presently, psoriatic arthritis 13:57 a major risk factor for cardiovascular disease in a person with high blood pressure, hyperlipidemia and diabetes mellitus. Her life expectancy autoimmune disease such as ankylosing spondylitis 14:22 disease. At the present time, I will order autoimmune inflammatory marker to assess the impact of the patient treatment under current symptoms. However, from clinical point of view, the patient's 14:54. Assessment of tenderness and generalized pain, diffuse bilateral articular pain that the patient may have mainly fibromyalgia. The patient will likely on cyclobenzaprine and part of classical treatment for fibromyalgia. Thank you, Dr. Becerra, for allowing me to participate in the care of this patient. Shiraz Almanza M.D. DR: RISHABH JOB#: [id number] CC:
--- NOTE | 2017-04-05 11:56 | Cardiology Report ---
APPROVED REPORT EXAM: Two-dimensional and M-mode echocardiogram with Doppler and color Doppler. INDICATION Left ventricular function M-Mode DIMENSIONS IVSd2.0 (0.7-1.1cm)Left Atrium (MM)2.4 (1.6-4.0cm) LVDd4.7 (3.5-5.6cm)Aortic Root3.0 (2.0-3.7cm) PWd0.9 (0.7-1.1cm)Aortic Cusp Exc.2.0 (1.5-2.0cm) LVDs2.6 (2.5-4.0cm) PWs1.0 cm Technically difficult study due to poor acoustic windows. Normal left ventricular chamber size, systolic function and wall motion. Left ventricular ejection fraction estimated to be 60-65 %. Moderate left ventricular hypertrophy. No evidence of pericardial fat or effusion. Right cardiac chamber sizes are within normal limits. Mild left atrial enlargement by 2D. Focal aortic valve sclerosis with adequate cusp excursion Elongated anterior and posterior mitral valve leaflets with normal excursion. Mitral annulus and aortic root calcification. Pulmonic valve not well visualized. Normal tricuspid valve structure. IVC is normal in size with physiologic collapse. A color flow and spectral Doppler study was performed and revealed: No aortic regurgitation. No mitral regurgitation. Left ventricular diastolic dysfunction grade 1. Trace tricuspid regurgitation.
--- NOTE | 2017-04-06 10:00 | Discharge Summary ---
Discharge Summary Hospital Course Date of Admission Apr 02, 2017 at 14:04 Date of Discharge Apr 04, 2017 at 13:40 Admitting Diagnosis HYPERTENSIVE MALIGNANCY HPI Robreta Ortega is a 56 year old female who was admitted on Apr 02, 2017 at 14:04 for Hypertensive Malignancy Hospital Course dc summary #[id number] Discharge Medications Continued Medications: Albuterol Sulfate* (Albuterol Sulfate Mdi*) 8.5 Gm Hfa.aer.ad 2 PUFF INH Q4H PRN for For Cough, #1 EA Cholecalciferol (Vitamin D3) (Vitamin D) 1,000 Unit Capsule 1000 UNIT PO DAILY, CAP Cyclobenzaprine Hcl* (Flexeril*) 10 Mg Tablet 10 MG ORAL HS, TAB Folic Acid* (Folic Acid*) 1 Mg Tablet 1 MG ORAL DAILY, TAB Hydromorphone HCl (Dilaudid) 2 Mg Tab 2 MG ORAL Q4H, #20 TAB 0 Refills Ibuprofen* (Motrin*) 800 Mg Tab 800 MG ORAL THREE TIMES A DAY PRN for Moderate Pain (Pain Scale 4-6) for 14 Days , TAB Isosorbide Mononitrate (Isosorbide Mononitrate Er) 30 Mg Tab.er.24h 30 MG PO DAILY, TAB Losartan/Hydrochlorothiazide (Losartan-Hctz 100-12.5 Mg Tab) 1 Each Tablet 1 TAB ORAL DAILY, TAB Prasterone (Dhea)/Calcium Carb (Dhea Tablet) 1 Each Tablet 1 EACH PO, TAB Prednisone (Prednisone) 5 Mg Tab 2.5 MG ORAL DAILY, #10 TAB 0 Refills Promethazine Hcl* (Phenergan*) 25 Mg Tablet 50 MG ORAL Q6H for For Pain, #15 TAB 0 Refills Discontinued Medications: Azithromycin* (Zithromax*) 250 Mg Tablet 250 MG ORAL DAILY, #6 TAB Take two tablets by mouth today, then take one tablet by mouth daily for four days Verapamil Hcl* (Calan Sr*) 240 Mg Tablet.er 240 MG ORAL DAILY, #30 CAP 0 Refills Discharge Condition Upon Discharge: stable Discharge Disposition Patient was discharged to Home (01) Discharge Diagnoses: Ozzy (Vanclisaein)Noa NP Apr 06, 2017 10:00
--- NOTE | 2017-04-07 02:15 | Discharge Summary 2 SIG ---
DATE OF ADMISSION: 04/02/2017 DATE OF DISCHARGE: 04/04/2017 REASON FOR ADMISSION: This is a 56-year-old female with past medical history significant for hypertension, presumed obstructive sleep apnea, myositis, morbid obesity, osteoarthritis, and psoriatic arthritis presented to emergency room from doctor's office with headache and neck pain. The patient had elevated blood pressure on presentation of 172/97. Headache was throbbing, radiating 8/10 on a scale 1 to 10. The patient admitted to palpation, but denied chest pain, dizziness, and dyspnea on exertion. Troponin was negative. CK was 391. Electrolytes and renal parameters were stable. EKG revealed normal sinus rhythm. No ischemic changes. Physical exam was unremarkable. CT of the head revealed no acute intracranial pathology, but showed old right basal ganglia lacunar infarct. The patient was admitted for further management. ADMITTING DIAGNOSES: 1. Intractable neck pain and headache. 2. Hypertensive urgency. 3. Presumed obstructive sleep apnea. 4. Myositis with elevated CK. 5. Osteoarthritis. 6. Psoriatic arthritis. 7. Morbid obesity. HOSPITAL COURSE: The patient was admitted to telemetry floor. Cardiology consult was requested for help with blood pressure management. Blood pressure controlled with current regimen prior to discharge. Cardiology closely followed. Pain management was provided with combined approach of NSAIDs, muscle relaxant and narcotic. Elevated blood pressure was likely partially due to uncontrolled pain. Currently pain controlled, and blood pressure stable. Lipid panel was stable. CK still elevated, trend as outpatient. Pulse oximetry was stable on room air. Pulmonary toilet provided as needed. The patient had sleep study done few years ago but never had a CPAP machine dispensed. The patient was encouraged to repeat sleep study test as outpatient. Echocardiogram revealed preserved ejection fracture. Chest x-ray revealed no acute cardiopulmonary pathology. DVT and GI prophylaxis provided. Bowel regimen instituted. Negative Assembler seen and evaluated the patient. PILY panel pending. The patient to follow up with the plant physiology teacher as an outpatient. The patient was stable for discharge. DISCHARGE DIAGNOSES: 1. Hypertensive urgency, resolved. 2. Intractable neck pain and headache, resolved. 3. Presumed obstructive sleep apnea. 4. Myositis with elevated CK. 5. Psoriatic arthritis. 6. Osteoarthritis. 7. Morbid obesity. DISCHARGE MEDICATIONS: See medication reconciliation list. DISCHARGE INSTRUCTIONS: The patient was discharged home. Follow up with the primary medical doctor and plant physiology teacher. Need to repeat sleep study and start using CPAP machine as indicated. Juma Hubbard M.D. Noa Preciado N.P. (Vanchtein) DR: JOSE RAFAEL JOB#: [id number] CC: ANABELLA
[2017-04-07 04:21] LABS: ANTI-NUCLEAR ANTIBODY SCREEN Negative (Negative); SMOOTH MUSCLE/ACTIN AB IGG 9 Units (0-19)
== END 2017-04-04 13:40 | disposition home or self-care (01) | DRG 305 ==
LOC: EMR 12:43 → 2E 14:04 → EDBEDREQ 14:21 → 2E 20:27
DX: I16.0 Hypertensive urgency (principal); Z68.41 Body mass index [BMI] 40.0-44.9, adult; E66.01 Morbid (severe) obesity due to excess calories; M54.2 Cervicalgia; R51 Headache; G47.33 Obstructive sleep apnea (adult) (pediatric); L40.50 Arthropathic psoriasis, unspecified; M19.90 Unspecified osteoarthritis, unspecified site; M60.9 Myositis, unspecified; M79.603 Pain in arm, unspecified
CPT/HCPCS: 36415; 70450; 71010; 80053; 80061; 82550; 82553; 83690; 83735; 84100; 84443; 84484; 85025; 85610; 85651; 85730; 86039; 86140; 86235; 86812; 93005; 93306; 94664; 94760; J2405

== ENCOUNTER 2018-04-18 14:04 | Inpatient (IN) | payer MEDICARE ==
[~2018-04-18] VITALS: Ht 162.6 cm; Wt 119.3 kg
[~2018-04-18 14:04] MED LIST changes: +CYCLOBENZAPRINE10 MG ORAL; +ISOSORBIDE MONO30 M1 PO; +LOSARTAN-HCTZ1 EACH ORAL
[2018-04-18 14:19] VITALS: BP 165/107
[2018-04-18] MEDS ORDERED: Sodium Chloride 500ML 500 ML IV ONE (14:29)
[2018-04-18] MEDS ORDERED: Solu-MEDROL 125mg Inj IVP ONE (14:30)
[2018-04-18] MEDS: Albuterol ud Inhalation HHN SCH ×3 (14:57→15:30)
[2018-04-18] MEDS: Ipratropium 0.02% Inh Soln 2.5ml UD HHN SCH ×3 (14:57→15:30)
[2018-04-18 15:06] LABS: BASOPHILS % (AUTO) 1.5 % (0.0-2.0); EOSINOPHILS % (AUTO) 4.1 % (0.0-3.0); HEMATOCRIT 44.2 % (37.0-47.0); HEMOGLOBIN 13.5 G/DL (12.0-16.0); MEAN CORPUSCULAR VOLUME 83 FL (80-99); MONOCYTES % (AUTO) 6.8 % (1.0-10.0); NEUTROPHILS % (AUTO) 47.6 % (45.0-75.0); PLATELET COUNT 311 K/UL (150-450); RED BLOOD COUNT 5.35 M/UL (4.20-5.40); RED CELL DISTRIBUTION WIDTH 13.7 % (11.6-14.8); WHITE BLOOD COUNT 10.8 K/UL (4.8-10.8)
[2018-04-18 15:11] LABS: ANION GAP 7 mmol/L (5-15); BLOOD UREA NITROGEN 18 mg/dL (7-18); CARBON DIOXIDE 28 MMOL/L (21-32); CHLORIDE 104 MMOL/L (98-107); POTASSIUM 3.6 MMOL/L (3.5-5.1); SODIUM 138 MMOL/L (136-145)
[2018-04-18 15:38] LABS: ALANINE AMINOTRANSFERASE 32 U/L (12-78); ALBUMIN 3.7 G/DL (3.4-5.0); ALBUMIN/GLOBULIN RATIO 0.8 (1.0-2.7); ALKALINE PHOSPHATASE 64 U/L (46-116); ASPARTATE AMINO TRANSFERASE 24 U/L (15-37); BILIRUBIN,TOTAL 0.4 MG/DL (0.2-1.0); CKMB 7.9 NG/ML (0.0-3.6); CREATINE KINASE 865 U/L (26-308)
[2018-04-18] MEDS ORDERED: Ipratropium 0.02% Inh Soln 2.5ml UD HHN ONE (15:45)
[2018-04-18] MEDS ORDERED: Albuterol ud Inhalation HHN ONE (15:45)
[2018-04-18] MEDS ORDERED: Piperacillin/Tazobactam 3.375 GM in NS 110 ML IVPB ONE (16:00)
[2018-04-18] MEDS ORDERED: Azithromycin 500 MG in NS 275 ML IV ONE (16:00)
[2018-04-18 16:34] LABS: APPEARANCE,URINE CLEAR; BILIRUBIN, URINE NEGATIVE (NEGATIVE); GLUCOSE, URINE (UA) NEGATIVE (NEGATIVE); KETONES,URINE NEGATIVE (NEGATIVE); LEUKOCYTE ESTERASE ,URINE NEGATIVE (NEGATIVE); NITRITE,URINE NEGATIVE (NEGATIVE); PH,URINE 5 (4.5-8.0); PROTEIN,URINE 1+ (NEGATIVE); UROBILINOGEN,URINE 1 MG/DL (0.0-1.0)
[2018-04-18 16:41] LABS: COLOR,URINE YELLOW
[2018-04-18 16:43] VITALS: BP 164/71
--- NOTE | 2018-04-18 17:12 | Emergency Room Report ---
History of Present Illness General Chief Complaint: Dyspnea/Respdistress Source: Patient Present Illness HPI 57-year-old female presents ED complaining of cough, chest tightness. States that she's had a productive cough 2 weeks. History of asthma with wheezing. Had been prescribed an inhaler and antibiotics by her PMD. States that she completed antibiotic course without relief. Denies chest pain. Denies fevers or chills. Denies sick contacts was travel. No other aggravating relieving factors. Denies any other associated symptoms Allergies: Coded Allergies: LATEX (Verified Allergy, Unknown, Shortness of Breath, 04/18/18) MORPHINE (Verified Allergy, Unknown, 04/18/18) n/v Patient History Past Medical History: HTN, asthma, other - chronic pain Past Surgical History: none Pertinent Family History: none Social History: Denies: smoking, alcohol use, drug use Last Menstrual Period: na Now: No Immunizations: UTD Reviewed Nursing Documentation: PMH: Agreed; PSxH: Agreed Nursing Documentation-PMH Past Medical History: No History, Except For Hx Cardiac Problems: Yes - MITRAL VALVE PROLAPSE,CHRONIC PAIN Hx Hypertension: Yes Hx Pacemaker: No Hx Asthma: Yes Hx COPD: No Hx Diabetes: No Hx Cancer: No Hx Gastrointestinal Problems: No Hx Dialysis: No Hx Neurological Problems: Yes - PSORIATIC ARTHRITIC Hx Cerebrovascular Accident: No Hx Seizures: No Review of Systems All Other Systems: negative except mentioned in HPI Physical Exam Vital Signs Date Time Temp Pulse Resp B/P (MAP) Pulse Ox O2 Delivery O2 Flow Rate FiO2 04/18/18 14:12 98.0 86 20 165/107 94 Room Air 98.1 04/18/18 14:55 21 Sp02 EP Interpretation: reviewed, normal General Appearance: no apparent distress, alert, GCS 15, non-toxic, obese Head: normocephalic, atraumatic Eyes: bilateral eye normal inspection, bilateral eye PERRL ENT: hearing grossly normal, normal pharynx, no angioedema, normal voice Neck: full range of motion, supple/symm/no masses Respiratory: chest non-tender, normal breath sounds, decreased breath sounds, speaking full sentences, wheezing Cardiovascular #1: regular rate, rhythm, no edema Cardiovascular #2: 2+ carotid (R), 2+ carotid (L), 2+ radial (R), 2+ radial (L) , 2+ dorsalis pedis (R), 2+ dorsalis pedis (L) Gastrointestinal: normal bowel sounds, non tender, soft, non-distended, no guarding, no rebound Rectal: deferred Genitourinary: normal inspection, no CVA tenderness Musculoskeletal: back normal, gait/station normal, normal range of motion, non- tender Neurologic: alert, oriented x3, responsive, motor strength/tone normal, sensory intact, speech normal Psychiatric: judgement/insight normal, memory normal, mood/affect normal, no suicidal/homicidal ideation Reflexes: 3+ bicep (R), 3+ bicep (L), 3+ tricep (R), 3+ tricep (L), 3+ knee (R) , 3+ knee (L) Skin: normal color, no rash, warm/dry, well hydrated Lymphatic: no adenopathy Medical Decision Making Diagnostic Impression: Primary Impression: Bronchitis Additional Impression: Wheezing ER Course Hospital Course 57-year-old M presenting to ED with respiratory distress, cough and crackles Differential diagnoses include: Pneumonia, CHF exacerbation, pneumothorax, fluid overload Clinical course Patient placed on stretcher. On cardiac rehab nurse. After initial history and physical, I ordered nebulizer treatments. I ordered labs, IV fluids, EKG, chest x-ray, blood cultures, UA. Patient placed on nasal cannula with O2 saturation improving Labs -no leukocytosis, hemoglobin/hematocrit stable, electrolytes okay, lactate okay, troponins negative CXR - cardiomegaly, L sided effusion Patient continues to have wheezing, shortness of breath. Patient has failed outpatient therapy and will require admission. Given IV antibiotics here. Given Solu-Medrol. Case discussed with Dr. Hubbard and he agreed to the patient to his service for further care and support I feel this is a highly complex case requiring extensive working including EKG/ Rhythm strip, Xray/CT/US, Blood/urine lab work, repeat exams while in ED, and administration of strong opiates/narcotics for pain control, admission to hospital or close patient follow up. Diagnosis - bronchitis, wheezing Patient admitted to floor in serious condition Labs Test 04/18/18 14:35 04/18/18 16:20 White Blood Count 10.8 K/UL (4.8-10.8) Red Blood Count 5.35 M/UL (4.20-5.40) Hemoglobin 13.5 G/DL (12.0-16.0) Hematocrit 44.2 % (37.0-47.0) Mean Corpuscular Volume 83 FL (80-99) Mean Corpuscular Hemoglobin 25.2 PG (27.0-31.0) Mean Corpuscular Hemoglobin Concent 30.6 G/DL (32.0-36.0) Red Cell Distribution Width 13.7 % (11.6-14.8) Platelet Count 311 K/UL (150-450) Mean Platelet Volume 7.8 FL (6.5-10.1) Neutrophils (%) (Auto) 47.6 % (45.0-75.0) Lymphocytes (%) (Auto) 40.0 % (20.0-45.0) Monocytes (%) (Auto) 6.8 % (1.0-10.0) Eosinophils (%) (Auto) 4.1 % (0.0-3.0) Basophils (%) (Auto) 1.5 % (0.0-2.0) Sodium Level 138 MMOL/L (136-145) Potassium Level 3.6 MMOL/L (3.5-5.1) Chloride Level 104 MMOL/L (98-107) Carbon Dioxide Level 28 MMOL/L (21-32) Anion Gap 7 mmol/L (5-15) Blood Urea Nitrogen 18 mg/dL (7-18) Creatinine 1.0 MG/DL (0.55-1.30) Estimat Glomerular Filtration Rate > 60 mL/min (>60) Glucose Level 93 MG/DL (74-106) Calcium Level 9.0 MG/DL (8.5-10.1) Total Bilirubin 0.4 MG/DL (0.2-1.0) Aspartate Amino Transf (AST/SGOT) 24 U/L (15-37) Alanine Aminotransferase (ALT/SGPT) 32 U/L (12-78) Alkaline Phosphatase 64 U/L (46-116) Total Creatine Kinase 865 U/L (26-308) Creatine Kinase MB 7.9 NG/ML (0.0-3.6) Creatine Kinase MB Relative Index 0.9 Troponin I 0.010 ng/mL (0.000-0.056) Pro-B-Type Natriuretic Peptide 93 pg/mL (0-125) Total Protein 8.1 G/DL (6.4-8.2) Albumin 3.7 G/DL (3.4-5.0) Globulin 4.4 g/dL Albumin/Globulin Ratio 0.8 (1.0-2.7) Lipase 101 U/L (73-393) Urine Color Yellow Urine Appearance Clear Urine pH 5 (4.5-8.0) Urine Specific [place] 1.025 (1.005-1.035) Urine Protein 1+ (NEGATIVE) Urine Glucose (UA) Negative (NEGATIVE) Urine Ketones Negative (NEGATIVE) Urine Blood Negative (NEGATIVE) Urine Nitrite Negative (NEGATIVE) Urine Bilirubin Negative (NEGATIVE) Urine Urobilinogen 1 MG/DL (0.0-1.0) Urine Leukocyte Esterase Negative (NEGATIVE) Urine RBC 0-2 /HPF (0 - 2) Urine WBC 0-2 /HPF (0 - 2) Urine Squamous Epithelial Cells Few /LPF (NONE/OCC) Urine Bacteria Few /HPF (NONE) Chest X-Ray Diagnostic Results Chest X-Ray Diagnostic Results : Chest X-Ray Ordered: Yes # of Views/Limited/Complete: 1 View Indication: Shortness of Breath EP Interpretation: Yes Interpretation: no pneumothorax, other - cardiomegaly. L sided effusion Impression: Other - L sided effusion Electronically Signed by: Electronically signed by Esteban Villanueva MD Last Vital Signs Date Time Temp Pulse Resp B/P (MAP) Pulse Ox O2 Delivery O2 Flow Rate FiO2 04/18/18 16:43 98.5 106 19 164/71 96 Room Air 98.5 04/18/18 16:06 21 Status: improved Disposition: ADMITTED INPATIENT Condition: Serious Referrals: Juma Hubbard MD (PCP) Esteban Villanueva MD Apr 18, 2018 17:12
[2018-04-18] MEDS ORDERED: Promethazine/Codeine 5ml UD ORAL PRN ×2 (17:30→22:30)
[2018-04-18] MEDS ORDERED: LORazepam Inj 2mg/ml 1ml IV PRN (17:30)
[2018-04-18] MEDS ORDERED: Ketorolac 30mg Inj IV PRN (17:30)
[2018-04-18] MEDS ORDERED: Nitroglycerin Subl 0.4mg tab SL PRN (17:30)
[2018-04-18 18:54] VITALS: BP 130/105
[2018-04-18 20:00] VITALS: BP 174/98
[2018-04-18] MEDS: Albuterol/Ipratropium 3ml neb HHN PRN (20:15)
[2018-04-18] MEDS ORDERED: Promethazine 25mg tab ORAL SCH (20:45)
[2018-04-18] MEDS: Zosyn 3.375gm q8h **Extended infusion IVPB SCH ×2 (21:16)
[2018-04-18] MEDS: Theophylline ER 100mg ORAL SCH (21:17)
[2018-04-18] MEDS: HYDROmorphone 2mg tab ORAL PRN (21:17)
[2018-04-18] MEDS: Hyzaar 12.5mg/50mg tab ORAL SCH (21:18)
[2018-04-18] MEDS: Heparin 5000 units/ml inj SUBQ SCH (21:19)
[2018-04-18] MEDS: Promethazine 25mg tab ORAL PRN (21:58)
[2018-04-18] MEDS ORDERED: Piperacillin/Tazobactam 2.25 GM in D5W 55 ML IV SCH (22:00)
[2018-04-19] VITALS (7 sets, daily range): BP systolic 128–168; BP diastolic 85–94
[2018-04-19] MEDS: Zosyn 3.375gm q8h **Extended infusion IVPB SCH ×6 (06:21→20:31)
[2018-04-19] MEDS: Solu-MEDROL 125mg Inj IV SCH ×4 (06:21→18:32)
[2018-04-19] MEDS: Promethazine 25mg tab ORAL PRN ×2 (08:43→15:32)
[2018-04-19] MEDS: Theophylline ER 100mg ORAL SCH ×2 (08:43→20:31)
[2018-04-19] MEDS: HYDROmorphone 2mg tab ORAL PRN ×2 (08:44→15:33)
[2018-04-19] MEDS: Hyzaar 12.5mg/50mg tab ORAL SCH (08:44)
[2018-04-19] MEDS: Heparin 5000 units/ml inj SUBQ SCH ×2 (08:46→20:36)
[2018-04-19] MEDS: Albuterol/Ipratropium 3ml neb HHN PRN ×2 (09:46→22:30)
--- NOTE | 2018-04-19 10:41 | Diagnostic Imaging Report ---
Indication: Shortness of breath Technique: One view of the chest Comparison: 04/02/2017 Findings: The heart is borderline enlarged. Lungs and pleural spaces are clear. Findings are unchanged Impression: No acute process. Borderline cardiomegaly
--- NOTE | 2018-04-19 12:53 | Consultation ---
History of Present Illness General Date patient seen: Apr 19, 2018 Chief Complaint: Dyspnea/Respdistress Present Illness HPI 57-year-old female with hx of Asthma, chronic pain, presented to ED complaining of chest tightness and productive cough 2 weeks. Had been prescribed an inhaler and antibiotics by her PMD. States that she completed antibiotic course without relief. Denies chest pain. Denies fevers or chills. Denies sick contacts was travel. Pt was diagnosed to have acute exacerbation of asthma and admitted for inpatient treatment. Allergies: Coded Allergies: LATEX (Verified Allergy, Unknown, Shortness of Breath, 04/18/18) MORPHINE (Verified Allergy, Unknown, 04/18/18) n/v Medication History Scheduled Cholecalciferol (Vitamin D3) (Vitamin D), 1,000 UNIT PO DAILY, (Reported) Cyclobenzaprine Hcl* (Flexeril*), 10 MG ORAL HS, (Reported) Folic Acid* (Folic Acid*), 1 MG ORAL DAILY, (Reported) Hydromorphone HCl (Dilaudid), 2 MG ORAL Q4H, (Reported) Isosorbide Mononitrate (Isosorbide Mononitrate Er), 30 MG PO DAILY, (Reported) Losartan/Hydrochlorothiazide (Losartan-Hctz 100-12.5 Mg Tab), 1 TAB ORAL DAILY, (Reported) Prednisone (Prednisone), 2.5 MG ORAL DAILY, (Reported) Promethazine Hcl* (Phenergan*), 50 MG ORAL Q6H, (Reported) Scheduled PRN Albuterol Sulfate* (Albuterol Sulfate Mdi*), 2 PUFF INH Q4H PRN for For Cough Ibuprofen* (Motrin*), 800 MG ORAL THREE TIMES A DAY PRN for Moderate Pain (Pain Scale 4-6) Miscellaneous Medications Prasterone (Dhea)/Calcium Carb (Dhea Tablet), 1 EACH PO, (Reported) Patient History Healthcare decision maker N Resuscitation status Full Code Advanced Directive on File No Past Medical/Surgical History Past Medical/Surgical History: (1) History of asthma (2) Knee osteoarthritis (3) Psoriatic arthritis (4) HTN (hypertension) Review of Systems All Other Systems: negative except mentioned in HPI Physical Exam General Appearance: WD/WN, no apparent distress Lines, tubes and drains: peripheral HEENT: normocephalic Neck: non-tender, normal alignment Respiratory/Chest: chest wall non-tender, lungs clear Breasts: no masses Cardiovascular/Chest: normal peripheral pulses Abdomen: normal bowel sounds, non tender Genitourinary/Rectal: normal genital exam Skin Exam: normal pigmentation Neurologic: press clipper II-XII grossly normal Last 24 Hour Vital Signs Date Time Temp Pulse Resp B/P (MAP) Pulse Ox O2 Delivery O2 Flow Rate FiO2 04/19/18 12:00 98.0 81 19 138/86 (103) 94 98.0 04/19/18 09:56 81 20 98 Room Air 21 04/19/18 09:45 Room Air 04/19/18 09:45 97 20 80 Room Air 21 04/19/18 09:45 80 20 Room Air 21 04/19/18 09:41 82 153/94 (113) 04/19/18 08:44 167/93 04/19/18 08:44 167/93 04/19/18 08:00 98.0 82 20 167/93 (117) 95 98.0 04/19/18 04:00 97.8 76 20 150/85 (106) 95 97.8 04/19/18 00:26 168/87 04/19/18 00:00 98.0 107 22 168/87 (114) 93 98.0 04/18/18 21:18 174/98 04/18/18 20:25 103 20 96 Room Air 21 04/18/18 20:15 98 20 98 Room Air 04/18/18 20:15 98 20 Room Air 21 04/18/18 20:00 98.1 100 21 174/98 (123) 93 98.1 04/18/18 19:30 Nasal Cannula 2.0 04/18/18 19:02 98.2 101 18 94 98.2 04/18/18 18:54 98.9 100 22 130/105 94 Room Air 98.5 04/18/18 18:54 98.9 100 22 130/105 94 Room Air 98.9 04/18/18 16:43 98.5 106 19 164/71 96 Room Air 98.5 04/18/18 16:06 96 15 100 Room Air 21 04/18/18 15:50 98 18 99 Room Air 21 04/18/18 15:50 98 18 99 Room Air 21 04/18/18 15:27 90 20 99 Room Air 21 04/18/18 15:27 90 20 99 Room Air 21 04/18/18 15:13 82 20 98 Room Air 21 04/18/18 15:13 82 20 98 Room Air 21 04/18/18 14:55 90 20 Room Air 21 04/18/18 14:55 90 20 95 Room Air 21 04/18/18 14:23 86 20 Room Air 04/18/18 14:19 98.1 20 165/107 94 Room Air 98.1 04/18/18 14:12 98.0 86 20 165/107 94 Room Air 98.1 Intake and Output 04/18/18 04/19/18 19:00 07:00 Intake Total 885 ml 340 ml Balance 885 ml 340 ml Intake Oral 0 ml 340 ml IV Total 885 ml # Voids 2 Laboratory Tests Test 04/18/18 14:35 04/18/18 16:20 White Blood Count 10.8 K/UL (4.8-10.8) Red Blood Count 5.35 M/UL (4.20-5.40) Hemoglobin 13.5 G/DL (12.0-16.0) Hematocrit 44.2 % (37.0-47.0) Mean Corpuscular Volume 83 FL (80-99) Mean Corpuscular Hemoglobin 25.2 PG (27.0-31.0) L Mean Corpuscular Hemoglobin Concent 30.6 G/DL (32.0-36.0) L Red Cell Distribution Width 13.7 % (11.6-14.8) Platelet Count 311 K/UL (150-450) Mean Platelet Volume 7.8 FL (6.5-10.1) Neutrophils (%) (Auto) 47.6 % (45.0-75.0) Lymphocytes (%) (Auto) 40.0 % (20.0-45.0) Monocytes (%) (Auto) 6.8 % (1.0-10.0) Eosinophils (%) (Auto) 4.1 % (0.0-3.0) H Basophils (%) (Auto) 1.5 % (0.0-2.0) Sodium Level 138 MMOL/L (136-145) Potassium Level 3.6 MMOL/L (3.5-5.1) Chloride Level 104 MMOL/L (98-107) Carbon Dioxide Level 28 MMOL/L (21-32) Anion Gap 7 mmol/L (5-15) Blood Urea Nitrogen 18 mg/dL (7-18) Creatinine 1.0 MG/DL (0.55-1.30) Estimat Glomerular Filtration Rate > 60 mL/min (>60) Glucose Level 93 MG/DL (74-106) Calcium Level 9.0 MG/DL (8.5-10.1) Total Bilirubin 0.4 MG/DL (0.2-1.0) Aspartate Amino Transf (AST/SGOT) 24 U/L (15-37) Alanine Aminotransferase (ALT/SGPT) 32 U/L (12-78) Alkaline Phosphatase 64 U/L (46-116) Total Creatine Kinase 865 U/L (26-308) H Creatine Kinase MB 7.9 NG/ML (0.0-3.6) H Creatine Kinase MB Relative Index 0.9 Troponin I 0.010 ng/mL (0.000-0.056) Pro-B-Type Natriuretic Peptide 93 pg/mL (0-125) Total Protein 8.1 G/DL (6.4-8.2) Albumin 3.7 G/DL (3.4-5.0) Globulin 4.4 g/dL Albumin/Globulin Ratio 0.8 (1.0-2.7) L Lipase 101 U/L (73-393) Urine Color Yellow Urine Appearance Clear Urine pH 5 (4.5-8.0) Urine Specific [place] 1.025 (1.005-1.035) Urine Protein 1+ (NEGATIVE) H Urine Glucose (UA) Negative (NEGATIVE) Urine Ketones Negative (NEGATIVE) Urine Blood Negative (NEGATIVE) Urine Nitrite Negative (NEGATIVE) Urine Bilirubin Negative (NEGATIVE) Urine Urobilinogen 1 MG/DL (0.0-1.0) H Urine Leukocyte Esterase Negative (NEGATIVE) Urine RBC 0-2 /HPF (0 - 2) Urine WBC 0-2 /HPF (0 - 2) Urine Squamous Epithelial Cells Few /LPF (NONE/OCC) Urine Bacteria Few /HPF (NONE) Height (Feet): 5 Height (Inches): 4.00 Weight (Pounds): 247 Medications Current Medications Medications (Trade) Dose Ordered Sig/Steve Route PRN Reason Start Time Stop Time Status Last Admin Dose Admin Albuterol/ Ipratropium (Albuterol/ Ipratropium) 3 ml Q4H PRN HHN dyspnea 04/18/18 17:30 04/23/18 17:29 04/19/18 09:46 Clonidine HCl (Catapres Tab) 0.1 mg Q4H PRN ORAL SBP > 160mmHg 04/18/18 20:30 05/18/18 20:29 04/19/18 08:44 Cyclobenzaprine HCl (Flexeril) 10 mg DAILYPRN PRN ORAL muscle spasms 04/18/18 21:00 05/18/18 20:59 Dextrose (Dextrose 50%) 25 ml PRN IV hypoglycemia 04/18/18 17:45 05/18/18 17:44 Dextrose (Dextrose 50%) 50 ml PRN IV hypoglycemia 04/18/18 17:45 05/18/18 17:44 HCTZ/Losartan Potassium (Hyzaar 50-12.5) 2 tab DAILY ORAL 04/18/18 20:30 05/18/18 20:29 04/19/18 08:44 Heparin Sodium (Porcine) (Heparin 5000 units/ml) 5,000 units EVERY 12 HOURS SUBQ 04/18/18 21:00 05/18/18 20:59 04/19/18 08:46 Hydromorphone HCl (Dilaudid) 2 mg Q4H PRN ORAL Severe Pain (Pain Scale 7-10) 04/18/18 20:30 04/25/18 20:29 04/19/18 08:44 Ketorolac Tromethamine (Toradol 30mg) 30 mg Q8H PRN IV Moderate Pain (Pain Scale 4-6) 04/18/18 17:30 04/23/18 17:29 04/18/18 20:00 Lorazepam (Ativan 2mg/ml 1ml) 0.5 mg Q4H PRN IV For Anxiety 04/18/18 17:30 04/25/18 17:29 Methylprednisolone Sodium Succinate (Solu-MEDROL) 60 mg EVERY 6 HOURS IV 04/19/18 00:00 05/19/18 00:00 04/19/18 12:46 Nitroglycerin (Ntg) 0.4 mg Q5M X 3 DOSES PRN SL Prn Chest Pain 04/18/18 17:30 05/18/18 17:29 Piperacillin Sod/ Tazobactam Sod 3.375 gm/Dextrose 110 ml @ 27.5 mls/hr EVERY 8 HOURS IVPB 04/18/18 22:00 04/23/18 21:59 04/19/18 06:21 Promethazine HCl (Phenergan) 50 mg Q8H PRN ORAL Nausea & Vomiting 04/18/18 21:45 05/18/18 21:44 04/19/18 08:43 Promethazine HCl/ Codeine (Phenergan with Codeine) 5 ml EVERY 6 HOURS PRN ORAL For Cough 04/18/18 22:30 05/18/18 22:29 Temazepam (Restoril) 15 mg HSPRN PRN ORAL Insomnia 04/18/18 21:00 04/25/18 20:59 04/18/18 23:15 Theophylline (Chema-Dur) 100 mg EVERY 12 HOURS ORAL 04/18/18 21:00 05/18/18 20:59 04/19/18 08:43 Assessment/Plan Problem List: (1) Asthma exacerbation ICD Codes: J45.901 - Unspecified asthma with (acute) exacerbation SNOMED: 732058349 (2) Chronic pain ICD Codes: G89.29 - Other chronic pain SNOMED: 32093928 Assessment/Plan respiratory treatment check sputum iv steroids iv abx titrate fio2 to sat of 92% Jaren Becerra MD Apr 19, 2018 12:53
--- NOTE | 2018-04-19 18:34 | History & Physical ---
History and Physical History & Physicial Dictated for Int Med-Dr Hubbard no. [id number] Raymon Grove MD Apr 19, 2018 18:34
--- NOTE | 2018-04-19 21:30 | History and Physical Report ---
DATE OF ADMISSION: 04/18/2018 CHIEF COMPLAINT: The patient is a 57-year-old female, who presents with a chief complaint of shortness of breath. HISTORY OF PRESENT ILLNESS: Began two weeks prior to admission. The patient began to have cough. Cough is productive of a greenish sputum. The patient also had chest tightness. The patient has wheezing. The patient presented to [facility] emergency room. The patient was admitted for cough and wheezing to rule out acute asthma exacerbation versus pneumonia. PAST MEDICAL HISTORY: Significant for, 1. Asthma. 2. Hypertension. 3. Psoriatic arthritis. 4. Obstructive sleep apnea. 5. Osteoarthritis. PAST SURGICAL HISTORY: Significant for total knee replacement. CURRENT MEDICATIONS: 1. Albuterol metered-dose inhaler two puffs p.o. q.i.d. p.r.n. 2. Vitamin D. 3. Flexeril 10 mg p.o. at bedtime. 4. Folic acid 1 mg p.o. daily. 5. Dilaudid 2 mg p.o. q.4 hours p.r.n. 6. Ibuprofen 800 mg p.o. 3 times daily. 7. Isosorbide mononitrate 30 mg p.o. daily. 8. Losartan/hydrochlorothiazide 100/12.5 one tablet p.o. daily. 9. Prednisone 2.5 mg p.o. daily. ALLERGIES: Latex and morphine. SOCIAL HISTORY: The patient denies tobacco or alcohol use. The patient is . REVIEW OF SYSTEMS: CONSTITUTIONAL: The patient denies weight loss or weight gain. The patient denies fevers or chills. HEENT: The patient denies ear or throat pain. The patient denies headache. CARDIOVASCULAR: The patient denies palpitations or chest pain. CHEST: The patient complains of wheezing as above. The patient complains of productive cough as above. The patient complains of wheezing as above. CARDIOVASCULAR: The patient denies palpitations or chest pain. ABDOMEN: The patient denies nausea, vomiting, diarrhea, or constipation. GENITOURINARY: The patient denies dysuria or increased frequency of urination. NEUROMUSCULAR: The patient denies seizures or generalized weakness. PHYSICAL EXAMINATION: VITAL SIGNS: Temperature 98, respirations 19, pulse 81, blood pressure 138/86, and oxygen saturation 80 to 98. GENERAL: The patient is a well-developed, well-nourished, obese, female, in no apparent distress. HEENT: Eyes, pupils are equal and responsive to light and accommodation. Extraocular movements are intact. NECK: Supple without lymphadenopathy. CHEST: Diffuse wheezes in bilateral lung culp. Otherwise, without crackles. CARDIOVASCULAR: Regular rhythm and rate. S1 and S2 are normal without murmurs, rubs, or gallops. ABDOMEN: Soft, nontender, and nondistended. Positive bowel sounds. No evidence of hepatosplenomegaly. Currently, no rebound or guarding noted. EXTREMITIES: Negative for clubbing, cyanosis, or edema. RECTAL/GENITAL: Refused. NEUROLOGIC: Cranial nerves II through XII are grossly intact without focal deficits. Motor strength is 5/5 bilaterally. Deep tendon reflexes are 2+ plantar. LABORATORY STUDIES: WBC 10.8, hemoglobin 13.5, hematocrit 44.2, and platelets 311,000. Sodium 138, potassium 3.6, chloride 104, CO2 20, BUN 18, creatinine 1.0, and glucose 93. Creatine kinase elevated at 865. Chest x-ray is reported as no acute process. ASSESSMENT: This is a 57-year-old female. 1. Cough. 2. Wheezing. 3. Asthma. 4. Hypertension. 5. Psoriatic arthritis. 6. Obstructive sleep apnea. 7. Osteoarthritis. TREATMENT: 1. Cough/wheezing/asthma. The patient has probable bronchitis. The patient has been started empirically on Zosyn. The patient has also been started on intravenous Solu-Medrol. We will follow recommendations of Pulmonary, Dr. Jaren Becerra. 2. Hypertension. Continue losartan and hydrochlorothiazide as above. 3. Psoriatic arthritis. 4. Obstructive sleep apnea. 5. Osteoarthritis. Raymon Grove M.D. DR: VALENTINE JOB#: [id number] CC:
[2018-04-20] VITALS (7 sets, daily range): BP systolic 133–175; BP diastolic 78–97
[2018-04-20] MEDS: Zosyn 3.375gm q8h **Extended infusion IVPB SCH ×6 (05:56→22:56)
[2018-04-20] MEDS: Solu-MEDROL 125mg Inj IV SCH ×3 (05:57→11:22)
[2018-04-20] MEDS: HYDROmorphone 2mg tab ORAL PRN ×4 (07:48→19:58)
[2018-04-20] MEDS: Theophylline ER 100mg ORAL SCH ×2 (07:49→20:10)
[2018-04-20] MEDS: Promethazine 25mg tab ORAL PRN ×4 (07:49→19:58)
[2018-04-20] MEDS: Hyzaar 12.5mg/50mg tab ORAL SCH (07:49)
[2018-04-20] MEDS: Heparin 5000 units/ml inj SUBQ SCH ×2 (07:54→20:17)
[2018-04-20 08:08] LABS: BASOPHILS % (AUTO) 0.2 % (0.0-2.0); HEMATOCRIT 43.9 % (37.0-47.0); HEMOGLOBIN 13.5 G/DL (12.0-16.0); LYMPHOCYTES % (AUTO) 14.7 % (20.0-45.0); MEAN CORPUSCULAR VOLUME 82 FL (80-99); MONOCYTES % (AUTO) 2.2 % (1.0-10.0); NEUTROPHILS % (AUTO) 82.9 % (45.0-75.0); PLATELET COUNT 313 K/UL (150-450); RED BLOOD COUNT 5.33 M/UL (4.20-5.40); RED CELL DISTRIBUTION WIDTH 13.7 % (11.6-14.8); WHITE BLOOD COUNT 16.7 K/UL (4.8-10.8)
[2018-04-20 08:26] LABS: ANION GAP 8 mmol/L (5-15); BLOOD UREA NITROGEN 28 mg/dL (7-18); CALCIUM 8.6 MG/DL (8.5-10.1); CARBON DIOXIDE 26 MMOL/L (21-32); CHLORIDE 103 MMOL/L (98-107); CREATININE 0.9 MG/DL (0.55-1.30); POTASSIUM 3.3 MMOL/L (3.5-5.1); SODIUM 137 MMOL/L (136-145)
[2018-04-20] MEDS: Cyclobenzaprine 10mg Tab ORAL PRN (11:23)
[2018-04-20] MEDS: Albuterol/Ipratropium 3ml neb HHN PRN (12:05)
--- NOTE | 2018-04-20 12:28 | Pulmonology Progress Note ---
Assessment/Plan Problems: (1) Asthma exacerbation (2) Chronic pain Assessment/Plan taper steroids check sputum, negative so far Blood cultures negative K supplement check electrolytes in am Subjective ROS Limited/Unobtainable: No Constitutional: Reports: no symptoms HEENT: Repors: no symptoms Respiratory: Reports: no symptoms Allergies: Coded Allergies: LATEX (Verified Allergy, Unknown, Shortness of Breath, 04/18/18) MORPHINE (Verified Allergy, Unknown, 04/18/18) n/v Objective Last 24 Hour Vital Signs Date Time Temp Pulse Resp B/P (MAP) Pulse Ox O2 Delivery O2 Flow Rate FiO2 04/20/18 12:04 85 16 94 Room Air 21 04/20/18 11:51 166/88 04/20/18 11:46 97.5 75 20 166/88 (114) 95 97.5 04/20/18 11:23 98.0 04/20/18 09:09 88 152/93 (112) 04/20/18 08:47 98.0 04/20/18 08:23 Room Air 04/20/18 08:15 81 16 Room Air 21 04/20/18 08:00 98.0 83 20 175/97 (123) 95 98.0 04/20/18 07:49 175/97 04/20/18 07:48 98.2 04/20/18 04:33 98.2 72 20 147/89 (108) 93 98.2 04/20/18 00:00 98.3 90 18 142/78 (99) 95 98.3 04/20/18 00:00 98.5 04/19/18 22:31 82 20 99 Room Air 21 04/19/18 22:30 80 20 98 Room Air 21 04/19/18 21:23 Nasal Cannula 3.0 04/19/18 20:18 98.5 87 16 150/85 (106) 92 98.5 04/19/18 20:00 85 16 Room Air 21 04/19/18 16:00 97.7 75 20 128/85 (99) 95 97.7 Intake and Output 04/19/18 04/20/18 19:00 07:00 Intake Total 700.0 ml 917.5 ml Balance 700.0 ml 917.5 ml Intake Oral 480 ml 780 ml IV Total 220.0 ml 137.5 ml # Voids 3 3 # Bowel Movements 1 General Appearance: WD/WN HEENT: normocephalic Respiratory/Chest: chest wall non-tender, crackles/rales Cardiovascular: normal peripheral pulses, normal rate Abdomen: normal bowel sounds, soft, non tender Genitourinary: normal external genitalia Extremities: no clubbing Neurologic/Psychiatric: humanities division chair II-XII grossly normal Microbiology Date/Time Source Procedure Growth Status 04/18/18 14:45 Blood Blood Culture - Preliminary NO GROWTH AFTER 24 HOURS Resulted 04/18/18 14:35 Blood Blood Culture - Preliminary NO GROWTH AFTER 24 HOURS Resulted 04/19/18 10:30 Sputum Gram Stain Pending Resulted 04/19/18 10:30 Sputum Sputum Culture - Preliminary NORMAL UPPER RESPIRATORY STEPAN AT 24 ... Resulted Laboratory Tests 04/20/18 06:30: White Blood Count 16.7H, Red Blood Count 5.33, Hemoglobin 13.5, Hematocrit 43.9 , Mean Corpuscular Volume 82, Mean Corpuscular Hemoglobin 25.3L, Mean Corpuscular Hemoglobin Concent 30.6L, Red Cell Distribution Width 13.7, Platelet Count 313, Mean Platelet Volume 7.9, Neutrophils (%) (Auto) 82.9H, Lymphocytes (%) (Auto) 14.7L, Monocytes (%) (Auto) 2.2, Eosinophils (%) (Auto) 0.0, Basophils (%) (Auto) 0.2, Sodium Level 137, Potassium Level 3.3L, Chloride Level 103, Carbon Dioxide Level 26, Anion Gap 8, Blood Urea Nitrogen 28H, Creatinine 0.9, Estimat Glomerular Filtration Rate > 60, Glucose Level 145H, Calcium Level 8.6 Current Medications Medications (Trade) Dose Ordered Sig/Steve Route PRN Reason Start Time Stop Time Status Last Admin Dose Admin Albuterol/ Ipratropium (Albuterol/ Ipratropium) 3 ml Q4H PRN HHN dyspnea 04/18/18 17:30 04/23/18 17:29 04/20/18 12:05 Clonidine HCl (Catapres Tab) 0.1 mg Q4H PRN ORAL SBP > 160mmHg 04/18/18 20:30 05/18/18 20:29 04/20/18 11:51 Cyclobenzaprine HCl (Flexeril) 10 mg DAILYPRN PRN ORAL muscle spasms 04/18/18 21:00 05/18/18 20:59 04/20/18 11:23 Dextrose (Dextrose 50%) 25 ml PRN IV hypoglycemia 04/18/18 17:45 05/18/18 17:44 Dextrose (Dextrose 50%) 50 ml PRN IV hypoglycemia 04/18/18 17:45 05/18/18 17:44 HCTZ/Losartan Potassium (Hyzaar 50-12.5) 2 tab DAILY ORAL 04/18/18 20:30 05/18/18 20:29 04/20/18 07:49 Heparin Sodium (Porcine) (Heparin 5000 units/ml) 5,000 units EVERY 12 HOURS SUBQ 04/18/18 21:00 05/18/18 20:59 04/20/18 07:54 Hydromorphone HCl (Dilaudid) 2 mg Q4H PRN ORAL Severe Pain (Pain Scale 7-10) 04/18/18 20:30 04/25/18 20:29 04/20/18 07:48 Ketorolac Tromethamine (Toradol 30mg) 30 mg Q8H PRN IV Moderate Pain (Pain Scale 4-6) 04/18/18 17:30 04/23/18 17:29 04/18/18 20:00 Lorazepam (Ativan 2mg/ml 1ml) 0.5 mg Q4H PRN IV For Anxiety 04/18/18 17:30 04/25/18 17:29 Methylprednisolone Sodium Succinate (Solu-MEDROL) 60 mg EVERY 6 HOURS IV 04/19/18 00:00 05/19/18 00:00 04/20/18 11:22 Nitroglycerin (Ntg) 0.4 mg Q5M X 3 DOSES PRN SL Prn Chest Pain 04/18/18 17:30 05/18/18 17:29 Piperacillin Sod/ Tazobactam Sod 3.375 gm/Dextrose 110 ml @ 27.5 mls/hr EVERY 8 HOURS IVPB 04/18/18 22:00 04/23/18 21:59 04/20/18 05:56 Promethazine HCl (Phenergan) 50 mg Q8H PRN ORAL Nausea & Vomiting 04/18/18 21:45 05/18/18 21:44 04/20/18 07:49 Promethazine HCl/ Codeine (Phenergan with Codeine) 5 ml EVERY 6 HOURS PRN ORAL For Cough 04/18/18 22:30 05/18/18 22:29 04/19/18 20:31 Temazepam (Restoril) 15 mg HSPRN PRN ORAL Insomnia 04/18/18 21:00 04/25/18 20:59 04/18/18 23:15 Theophylline (Chema-Dur) 100 mg EVERY 12 HOURS ORAL 04/18/18 21:00 05/18/18 20:59 04/20/18 07:49 Jaren Becerra MD Apr 20, 2018 12:28
[2018-04-20] MEDS ORDERED: Promethazine/Codeine 5ml UD ORAL PRN (12:30)
[2018-04-20] MEDS ORDERED: Promethazine 25mg tab ORAL PRN (15:30)
--- NOTE | 2018-04-20 16:06 | Cardiology Report ---
APPROVED REPORT EKG Measurement Heart [id number] IA 180P69 [id number] Normal sinus rhythm Possible Left atrial enlargement Left ventricular hypertrophy Nonspecific T wave abnormality Prolonged QT Abnormal ECG
--- NOTE | 2018-04-20 16:58 | Internal Med Progress Note ---
Subjective Date of Service: Apr 20, 2018 Physician Name Raymon Grove Attending Physician Juma Hubbard MD Current Medications Medications (Trade) Dose Ordered Sig/Steve Route PRN Reason Start Time Stop Time Status Last Admin Dose Admin Albuterol/ Ipratropium (Albuterol/ Ipratropium) 3 ml Q4H PRN HHN dyspnea 04/18/18 17:30 04/23/18 17:29 04/20/18 12:05 Clonidine HCl (Catapres Tab) 0.1 mg Q4H PRN ORAL SBP > 160mmHg 04/18/18 20:30 05/18/18 20:29 04/20/18 11:51 Cyclobenzaprine HCl (Flexeril) 10 mg DAILYPRN PRN ORAL muscle spasms 04/18/18 21:00 05/18/18 20:59 04/20/18 11:23 Dextrose (Dextrose 50%) 25 ml PRN IV hypoglycemia 04/18/18 17:45 05/18/18 17:44 Dextrose (Dextrose 50%) 50 ml PRN IV hypoglycemia 04/18/18 17:45 05/18/18 17:44 HCTZ/Losartan Potassium (Hyzaar 50-12.5) 2 tab DAILY ORAL 04/18/18 20:30 05/18/18 20:29 04/20/18 07:49 Heparin Sodium (Porcine) (Heparin 5000 units/ml) 5,000 units EVERY 12 HOURS SUBQ 04/18/18 21:00 05/18/18 20:59 04/20/18 07:54 Hydromorphone HCl (Dilaudid) 2 mg Q4H PRN ORAL Severe Pain (Pain Scale 7-10) 04/18/18 20:30 04/25/18 20:29 04/20/18 15:25 Ketorolac Tromethamine (Toradol 30mg) 30 mg Q8H PRN IV Moderate Pain (Pain Scale 4-6) 04/18/18 17:30 04/23/18 17:29 04/18/18 20:00 Lorazepam (Ativan 2mg/ml 1ml) 0.5 mg Q4H PRN IV For Anxiety 04/18/18 17:30 04/25/18 17:29 Methylprednisolone Sodium Succinate (Solu-MEDROL) 60 mg Q12H IVP 04/20/18 22:00 05/20/18 21:59 Nitroglycerin (Ntg) 0.4 mg Q5M X 3 DOSES PRN SL Prn Chest Pain 04/18/18 17:30 05/18/18 17:29 Piperacillin Sod/ Tazobactam Sod 3.375 gm/Dextrose 110 ml @ 27.5 mls/hr EVERY 8 HOURS IVPB 04/18/18 22:00 04/23/18 21:59 04/20/18 13:39 Promethazine HCl (Phenergan) 50 mg Q4H PRN ORAL For Cough 04/20/18 15:30 05/20/18 15:29 04/20/18 15:36 Temazepam (Restoril) 15 mg HSPRN PRN ORAL Insomnia 04/18/18 21:00 04/25/18 20:59 04/18/18 23:15 Theophylline (Chema-Dur) 100 mg EVERY 12 HOURS ORAL 04/18/18 21:00 05/18/18 20:59 04/20/18 07:49 Allergies: Coded Allergies: LATEX (Verified Allergy, Unknown, Shortness of Breath, 04/18/18) MORPHINE (Verified Allergy, Unknown, 04/18/18) n/v ROS Limited/Unobtainable: No Constitutional: Reports: no symptoms HEENT: Reports: no symptoms Cardiovascular: Reports: no symptoms Respiratory: Reports: shortness of breath Gastrointestinal/Abdominal: Reports: no symptoms Genitourinary: Reports: no symptoms Neurologic/Psychiatric: Reports: no symptoms Subjective 57 YO F admitted with cough and wheezing. Now acute asthma exacerbation with bronchitis. Cover for Int [facility]-DR Hubbard Objective Last Vital Signs Date Time Temp Pulse Resp B/P (MAP) Pulse Ox O2 Delivery O2 Flow Rate FiO2 04/20/18 15:55 97.6 04/20/18 15:40 91 22 133/80 (97) 95 04/20/18 12:16 Room Air 21 04/19/18 21:23 3.0 General Appearance: WD/WN, no apparent distress, obese EENT: PERRL/EOMI, normal ENT inspection, TMs normal Neck: non-tender, normal alignment, supple Cardiovascular: normal peripheral pulses, normal rate, regular rhythm, no gallop/murmur, no JVD Respiratory/Chest: chest wall non-tender, no accessory muscle use, respiratory distress, crackles/rales, expiratory wheezing Abdomen: normal bowel sounds, non tender, soft, no organomegaly, no mass Extremities: normal range of motion, non-tender Neurologic: programs director II-XII grossly normal, no motor/sensory deficits Skin: normal pigmentation, warm/dry Laboratory Tests Test 04/20/18 06:30 White Blood Count 16.7 K/UL (4.8-10.8) H Red Blood Count 5.33 M/UL (4.20-5.40) Hemoglobin 13.5 G/DL (12.0-16.0) Hematocrit 43.9 % (37.0-47.0) Mean Corpuscular Volume 82 FL (80-99) Mean Corpuscular Hemoglobin 25.3 PG (27.0-31.0) L Mean Corpuscular Hemoglobin Concent 30.6 G/DL (32.0-36.0) L Red Cell Distribution Width 13.7 % (11.6-14.8) Platelet Count 313 K/UL (150-450) Mean Platelet Volume 7.9 FL (6.5-10.1) Neutrophils (%) (Auto) 82.9 % (45.0-75.0) H Lymphocytes (%) (Auto) 14.7 % (20.0-45.0) L Monocytes (%) (Auto) 2.2 % (1.0-10.0) Eosinophils (%) (Auto) 0.0 % (0.0-3.0) Basophils (%) (Auto) 0.2 % (0.0-2.0) Sodium Level 137 MMOL/L (136-145) Potassium Level 3.3 MMOL/L (3.5-5.1) L Chloride Level 103 MMOL/L (98-107) Carbon Dioxide Level 26 MMOL/L (21-32) Anion Gap 8 mmol/L (5-15) Blood Urea Nitrogen 28 mg/dL (7-18) H Creatinine 0.9 MG/DL (0.55-1.30) Estimat Glomerular Filtration Rate > 60 mL/min (>60) Glucose Level 145 MG/DL (74-106) H Calcium Level 8.6 MG/DL (8.5-10.1) Microbiology Date/Time Source Procedure Growth Status 04/18/18 14:45 Blood Blood Culture - Preliminary NO GROWTH AFTER 24 HOURS Resulted 04/18/18 14:35 Blood Blood Culture - Preliminary NO GROWTH AFTER 24 HOURS Resulted 04/19/18 10:30 Sputum Gram Stain - Final Resulted 04/19/18 10:30 Sputum Sputum Culture - Preliminary NORMAL UPPER RESPIRATORY STEPAN AT 24 ... Resulted Intake and Output 04/19/18 04/20/18 19:00 07:00 Intake Total 700.0 ml 917.5 ml Balance 700.0 ml 917.5 ml Intake Oral 480 ml 780 ml IV Total 220.0 ml 137.5 ml # Voids 3 3 # Bowel Movements 1 Assessment/Plan Problem List: (1) Obstructive sleep apnea (2) Morbid obesity (3) HTN (hypertension) Assessment & Plan: Continue HCTZ and losartan (4) Rhabdomyolysis Assessment & Plan: Continue IV fluids (5) Psoriatic arthritis (6) Bronchitis Assessment & Plan: Continue zosyn (7) Wheezing (8) Asthma exacerbation Assessment & Plan: Cointinue IV solumedrol andalbuterol nebs per pulmonary Status: progressing Raymon Grove MD Apr 20, 2018 16:58
--- NOTE | 2018-04-20 22:52 | Consultation ---
History of Present Illness General Date patient seen: Apr 20, 2018 Chief Complaint: Dyspnea/Respdistress Present Illness HPI 57-year-old female, who presents with a chief complaint of shortness of breath. The pt has anxiety and insomnia. the pt has poor energy and episodes of fatigue and depression Allergies: Coded Allergies: LATEX (Verified Allergy, Unknown, Shortness of Breath, 04/18/18) MORPHINE (Verified Allergy, Unknown, 04/18/18) n/v Medication History Scheduled Cholecalciferol (Vitamin D3) (Vitamin D), 1,000 UNIT PO DAILY, (Reported) Cyclobenzaprine Hcl* (Flexeril*), 10 MG ORAL HS, (Reported) Folic Acid* (Folic Acid*), 1 MG ORAL DAILY, (Reported) Hydromorphone HCl (Dilaudid), 2 MG ORAL Q4H, (Reported) Isosorbide Mononitrate (Isosorbide Mononitrate Er), 30 MG PO DAILY, (Reported) Losartan/Hydrochlorothiazide (Losartan-Hctz 100-12.5 Mg Tab), 1 TAB ORAL DAILY, (Reported) Prednisone (Prednisone), 2.5 MG ORAL DAILY, (Reported) Promethazine Hcl* (Phenergan*), 50 MG ORAL Q6H, (Reported) Scheduled PRN Albuterol Sulfate* (Albuterol Sulfate Mdi*), 2 PUFF INH Q4H PRN for For Cough Ibuprofen* (Motrin*), 800 MG ORAL THREE TIMES A DAY PRN for Moderate Pain (Pain Scale 4-6) Miscellaneous Medications Prasterone (Dhea)/Calcium Carb (Dhea Tablet), 1 EACH PO, (Reported) Patient History Limited by: medical condition History Provided By: Patient, Medical Record, PMD Healthcare decision maker N Resuscitation status Full Code Advanced Directive on File No Past Medical/Surgical History Past Medical/Surgical History: (1) History of asthma (2) Obstructive sleep apnea (3) Viral syndrome (4) Sepsis (5) Chronic pain (6) Abdominal pain (7) Uncontrolled pain (8) Pain in limb (9) Morbid obesity (10) Psoriatic arthritis (11) Knee osteoarthritis (12) ACS (acute coronary syndrome) (13) Hypertensive emergency (14) Myositis (15) Rhabdomyolysis (16) HTN (hypertension) (17) Asthma exacerbation (18) Wheezing (19) Bronchitis Review of Systems Psychiatric: Reports: prior hx, anxiety, depressed feelings Physical Exam General Appearance: no apparent distress, alert Neurologic: oriented x 3, responsive, depressed affect Last 24 Hour Vital Signs Date Time Temp Pulse Resp B/P (MAP) Pulse Ox O2 Delivery O2 Flow Rate FiO2 04/20/18 21:20 Room Air 04/20/18 20:28 97.6 04/20/18 20:27 88 18 Room Air 21 04/20/18 20:00 98.3 84 18 152/92 (112) 96 98.3 04/20/18 19:58 97.6 04/20/18 15:40 97.6 91 22 133/80 (97) 95 97.6 04/20/18 15:25 97.5 04/20/18 12:22 97.5 04/20/18 12:16 85 16 99 Room Air 21 04/20/18 12:04 85 16 94 Room Air 21 04/20/18 11:51 166/88 04/20/18 11:46 97.5 75 20 166/88 (114) 95 97.5 04/20/18 11:23 98.0 04/20/18 09:09 88 152/93 (112) 04/20/18 08:23 Room Air 04/20/18 08:15 81 16 Room Air 21 04/20/18 08:00 98.0 83 20 175/97 (123) 95 98.0 04/20/18 07:49 175/97 04/20/18 07:48 98.2 04/20/18 04:33 98.2 72 20 147/89 (108) 93 98.2 04/20/18 00:00 98.3 90 18 142/78 (99) 95 98.3 04/20/18 00:00 98.5 Intake and Output 04/19/18 04/20/18 19:00 07:00 Intake Total 700.0 ml 917.5 ml Balance 700.0 ml 917.5 ml Intake Oral 480 ml 780 ml IV Total 220.0 ml 137.5 ml # Voids 3 3 # Bowel Movements 1 Laboratory Tests Test 04/20/18 06:30 White Blood Count 16.7 K/UL (4.8-10.8) H Red Blood Count 5.33 M/UL (4.20-5.40) Hemoglobin 13.5 G/DL (12.0-16.0) Hematocrit 43.9 % (37.0-47.0) Mean Corpuscular Volume 82 FL (80-99) Mean Corpuscular Hemoglobin 25.3 PG (27.0-31.0) L Mean Corpuscular Hemoglobin Concent 30.6 G/DL (32.0-36.0) L Red Cell Distribution Width 13.7 % (11.6-14.8) Platelet Count 313 K/UL (150-450) Mean Platelet Volume 7.9 FL (6.5-10.1) Neutrophils (%) (Auto) 82.9 % (45.0-75.0) H Lymphocytes (%) (Auto) 14.7 % (20.0-45.0) L Monocytes (%) (Auto) 2.2 % (1.0-10.0) Eosinophils (%) (Auto) 0.0 % (0.0-3.0) Basophils (%) (Auto) 0.2 % (0.0-2.0) Sodium Level 137 MMOL/L (136-145) Potassium Level 3.3 MMOL/L (3.5-5.1) L Chloride Level 103 MMOL/L (98-107) Carbon Dioxide Level 26 MMOL/L (21-32) Anion Gap 8 mmol/L (5-15) Blood Urea Nitrogen 28 mg/dL (7-18) H Creatinine 0.9 MG/DL (0.55-1.30) Estimat Glomerular Filtration Rate > 60 mL/min (>60) Glucose Level 145 MG/DL (74-106) H Calcium Level 8.6 MG/DL (8.5-10.1) Height (Feet): 5 Height (Inches): 4.00 Weight (Pounds): 263 Medications Current Medications Medications (Trade) Dose Ordered Sig/Steve Route PRN Reason Start Time Stop Time Status Last Admin Dose Admin Albuterol/ Ipratropium (Albuterol/ Ipratropium) 3 ml Q4H PRN HHN dyspnea 04/18/18 17:30 04/23/18 17:29 04/20/18 12:05 Clonidine HCl (Catapres Tab) 0.1 mg Q4H PRN ORAL SBP > 160mmHg 04/18/18 20:30 05/18/18 20:29 04/20/18 11:51 Cyclobenzaprine HCl (Flexeril) 10 mg DAILYPRN PRN ORAL muscle spasms 04/18/18 21:00 05/18/18 20:59 04/20/18 11:23 Dextrose (Dextrose 50%) 25 ml PRN IV hypoglycemia 04/18/18 17:45 05/18/18 17:44 Dextrose (Dextrose 50%) 50 ml PRN IV hypoglycemia 04/18/18 17:45 05/18/18 17:44 HCTZ/Losartan Potassium (Hyzaar 50-12.5) 2 tab DAILY ORAL 04/18/18 20:30 05/18/18 20:29 04/20/18 07:49 Heparin Sodium (Porcine) (Heparin 5000 units/ml) 5,000 units EVERY 12 HOURS SUBQ 04/18/18 21:00 05/18/18 20:59 04/20/18 20:17 Hydromorphone HCl (Dilaudid) 2 mg Q4H PRN ORAL Severe Pain (Pain Scale 7-10) 04/18/18 20:30 04/25/18 20:29 04/20/18 19:58 Ketorolac Tromethamine (Toradol 30mg) 30 mg Q8H PRN IV Moderate Pain (Pain Scale 4-6) 04/18/18 17:30 04/23/18 17:29 04/18/18 20:00 Lorazepam (Ativan 2mg/ml 1ml) 0.5 mg Q4H PRN IV For Anxiety 04/18/18 17:30 04/25/18 17:29 Methylprednisolone Sodium Succinate (Solu-MEDROL) 60 mg Q12H IVP 04/20/18 22:00 05/20/18 21:59 Nitroglycerin (Ntg) 0.4 mg Q5M X 3 DOSES PRN SL Prn Chest Pain 04/18/18 17:30 05/18/18 17:29 Piperacillin Sod/ Tazobactam Sod 3.375 gm/Dextrose 110 ml @ 27.5 mls/hr EVERY 8 HOURS IVPB 04/18/18 22:00 04/23/18 21:59 04/20/18 13:39 Promethazine HCl (Phenergan) 50 mg Q4H PRN ORAL For Cough 04/20/18 15:30 05/20/18 15:29 04/20/18 19:58 Temazepam (Restoril) 15 mg HSPRN PRN ORAL Insomnia 04/18/18 21:00 04/25/18 20:59 04/18/18 23:15 Theophylline (Chema-Dur) 100 mg EVERY 12 HOURS ORAL 04/18/18 21:00 05/18/18 20:59 04/20/18 20:10 Assessment/Plan Status: stable, progressing Assessment/Plan Anxiety d/o Insomnia restoril 15mg po qhs ativan prn Nathan Martinez MD Apr 20, 2018 22:52
[2018-04-20] MEDS: Solu-MEDROL 40mg Inj IVP SCH (22:56)
[2018-04-21] MEDS: HYDROmorphone 2mg tab ORAL PRN ×3 (00:07→11:11)
[2018-04-21] MEDS: Promethazine 25mg tab ORAL PRN ×3 (00:07→11:12)
[2018-04-21 00:10] VITALS: BP 141/86
[2018-04-21 04:00] VITALS: BP 132/85
[2018-04-21] MEDS: Zosyn 3.375gm q8h **Extended infusion IVPB SCH ×4 (05:55→14:38)
[2018-04-21 07:39] LABS: BASOPHILS % (AUTO) 0.3 % (0.0-2.0); HEMATOCRIT 43.4 % (37.0-47.0); HEMOGLOBIN 13.7 G/DL (12.0-16.0); LYMPHOCYTES % (AUTO) 18.4 % (20.0-45.0); MEAN CORPUSCULAR VOLUME 83 FL (80-99); NEUTROPHILS % (AUTO) 79.3 % (45.0-75.0); PLATELET COUNT 313 K/UL (150-450); RED BLOOD COUNT 5.25 M/UL (4.20-5.40); RED CELL DISTRIBUTION WIDTH 13.9 % (11.6-14.8); WHITE BLOOD COUNT 12.7 K/UL (4.8-10.8)
[2018-04-21] MEDS: Cyclobenzaprine 10mg Tab ORAL PRN (07:55)
[2018-04-21 07:58] LABS: ANION GAP 7 mmol/L (5-15); BLOOD UREA NITROGEN 24 mg/dL (7-18); CALCIUM 8.5 MG/DL (8.5-10.1); CARBON DIOXIDE 28 MMOL/L (21-32); CHLORIDE 103 MMOL/L (98-107); CREATINE KINASE 222 U/L (26-308); CREATININE 0.9 MG/DL (0.55-1.30); POTASSIUM 3.8 MMOL/L (3.5-5.1); SODIUM 138 MMOL/L (136-145)
[2018-04-21 08:00] VITALS: BP 130/85
[2018-04-21] MEDS: Hyzaar 12.5mg/50mg tab ORAL SCH (10:01)
[2018-04-21] MEDS: Theophylline ER 100mg ORAL SCH (10:01)
[2018-04-21] MEDS: Heparin 5000 units/ml inj SUBQ SCH (10:05)
[2018-04-21] MEDS: Solu-MEDROL 40mg Inj IVP SCH (10:08)
[2018-04-21 12:00] VITALS: BP 170/98
[2018-04-21] MEDS ORDERED: THEOPHYLLINE A100 MG ORAL (13:17)
--- NOTE | 2018-04-21 13:18 | Pulmonology Progress Note ---
Assessment/Plan Problems: (1) Asthma exacerbation (2) Chronic pain Assessment/Plan feeling better taper steroids check sputum, negative so far Blood cultures negative dc home with oral abx and prednisone Subjective ROS Limited/Unobtainable: No Constitutional: Reports: no symptoms HEENT: Repors: no symptoms Respiratory: Reports: no symptoms Cardiovascular: Reports: no symptoms Allergies: Coded Allergies: LATEX (Verified Allergy, Unknown, Shortness of Breath, 04/18/18) MORPHINE (Verified Allergy, Unknown, 04/18/18) n/v Objective Last 24 Hour Vital Signs Date Time Temp Pulse Resp B/P (MAP) Pulse Ox O2 Delivery O2 Flow Rate FiO2 04/21/18 11:41 98.2 04/21/18 11:11 98.2 04/21/18 10:01 130/65 04/21/18 09:00 Room Air 04/21/18 08:25 98.2 04/21/18 08:00 98.1 20 130/85 (100) 94 98.1 04/21/18 07:55 98.2 04/21/18 04:00 98.2 71 19 132/85 (101) 96 98.2 04/21/18 00:10 97.8 69 17 141/86 (104) 98 97.8 04/20/18 21:20 Room Air 04/20/18 20:27 88 18 Room Air 21 04/20/18 20:00 98.3 84 18 152/92 (112) 96 98.3 04/20/18 19:58 97.6 04/20/18 15:40 97.6 91 22 133/80 (97) 95 97.6 04/20/18 15:25 97.5 Intake and Output 04/20/18 04/21/18 19:00 07:00 Intake Total 860 ml 670.0 ml Balance 860 ml 670.0 ml Intake Oral 860 ml 560 ml IV Total 110.0 ml # Voids 1 3 General Appearance: WD/WN, no acute distress HEENT: atraumatic Respiratory/Chest: crackles/rales Breasts: no masses Cardiovascular: no JVD Abdomen: normal bowel sounds, soft, non tender Genitourinary: normal external genitalia Extremities: no clubbing Skin: no lesions Microbiology Date/Time Source Procedure Growth Status 04/18/18 14:45 Blood Blood Culture - Preliminary NO GROWTH AFTER 48 HOURS Resulted 9/3/18 14:35 Blood Blood Culture - Preliminary NO GROWTH AFTER 48 HOURS Resulted 04/19/18 10:30 Sputum Gram Stain - Final Complete 04/19/18 10:30 Sputum Sputum Culture - Final NORMAL UPPER RESPIRATORY STEPAN AT 48 ... Complete 04/19/18 07:00 Nose MRSA Culture - Final NO METHICILLIN RESISTANT STAPH AUREUS... Complete 04/19/18 07:00 Rectum VRE Culture - Final NO VANCOMYCIN RESISTANT ENTEROCOCCUS ... Complete 04/19/18 07:00 Rectum - Final NO CARBAPENEM-RESISTANT ENTEROBACTERI... Complete Laboratory Tests 04/21/18 07:15: White Blood Count 12.7H, Red Blood Count 5.25, Hemoglobin 13.7, Hematocrit 43.4 , Mean Corpuscular Volume 83, Mean Corpuscular Hemoglobin 26.1L, Mean Corpuscular Hemoglobin Concent 31.6L, Red Cell Distribution Width 13.9, Platelet Count 313, Mean Platelet Volume 8.5, Neutrophils (%) (Auto) 79.3H, Lymphocytes (%) (Auto) 18.4L, Monocytes (%) (Auto) 2.0, Eosinophils (%) (Auto) 0.0, Basophils (%) (Auto) 0.3, Sodium Level 138, Potassium Level 3.8, Chloride Level 103, Carbon Dioxide Level 28, Anion Gap 7, Blood Urea Nitrogen 24H, Creatinine 0.9, Estimat Glomerular Filtration Rate > 60, Glucose Level 122H, Calcium Level 8.5, Total Creatine Kinase 222 Current Medications Medications (Trade) Dose Ordered Sig/Steve Route PRN Reason Start Time Stop Time Status Last Admin Dose Admin Albuterol/ Ipratropium (Albuterol/ Ipratropium) 3 ml Q4H PRN HHN dyspnea 04/18/18 17:30 04/23/18 17:29 04/20/18 12:05 Clonidine HCl (Catapres Tab) 0.1 mg Q4H PRN ORAL SBP > 160mmHg 04/18/18 20:30 05/18/18 20:29 04/20/18 11:51 Cyclobenzaprine HCl (Flexeril) 10 mg DAILYPRN PRN ORAL muscle spasms 04/18/18 21:00 05/18/18 20:59 04/21/18 07:55 Dextrose (Dextrose 50%) 25 ml PRN IV hypoglycemia 04/18/18 17:45 05/18/18 17:44 Dextrose (Dextrose 50%) 50 ml PRN IV hypoglycemia 04/18/18 17:45 05/18/18 17:44 HCTZ/Losartan Potassium (Hyzaar 50-12.5) 2 tab DAILY ORAL 04/18/18 20:30 05/18/18 20:29 04/21/18 10:01 Heparin Sodium (Porcine) (Heparin 5000 units/ml) 5,000 units EVERY 12 HOURS SUBQ 04/18/18 21:00 05/18/18 20:59 04/21/18 10:05 Hydromorphone HCl (Dilaudid) 2 mg Q4H PRN ORAL Severe Pain (Pain Scale 7-10) 04/18/18 20:30 04/25/18 20:29 04/21/18 11:11 Ketorolac Tromethamine (Toradol 30mg) 30 mg Q8H PRN IV Moderate Pain (Pain Scale 4-6) 04/18/18 17:30 04/23/18 17:29 04/18/18 20:00 Lorazepam (Ativan 2mg/ml 1ml) 0.5 mg Q4H PRN IV For Anxiety 04/18/18 17:30 04/25/18 17:29 Methylprednisolone Sodium Succinate (Solu-MEDROL) 60 mg Q12H IVP 04/20/18 22:00 05/20/18 21:59 04/21/18 10:08 Nitroglycerin (Ntg) 0.4 mg Q5M X 3 DOSES PRN SL Prn Chest Pain 04/18/18 17:30 05/18/18 17:29 Piperacillin Sod/ Tazobactam Sod 3.375 gm/Dextrose 110 ml @ 27.5 mls/hr EVERY 8 HOURS IVPB 04/18/18 22:00 04/23/18 21:59 04/21/18 05:55 Promethazine HCl (Phenergan) 50 mg Q4H PRN ORAL For Cough 04/20/18 15:30 05/20/18 15:29 04/21/18 11:12 Temazepam (Restoril) 15 mg HSPRN PRN ORAL Insomnia 04/18/18 21:00 04/25/18 20:59 04/18/18 23:15 Theophylline (Chema-Dur) 100 mg EVERY 12 HOURS ORAL 04/18/18 21:00 05/18/18 20:59 04/21/18 10:01 Jaren Becerra MD Apr 21, 2018 13:18
[2018-04-21] MEDS ORDERED: PREDNISONE10 MG ORAL (15:03)
[2018-04-21] MEDS ORDERED: PREDNISONE20 MG ORAL (15:03)
[2018-04-21] MEDS ORDERED: AUGMENTIN 875-1 EAC1 ORAL (15:06)
--- NOTE | 2018-04-22 11:32 | Discharge Summary ---
Discharge Summary Discharge Summary _ DATE OF ADMISSION: 04/18/2018 DATE OF DISCHARGE: 04/21/2018 CONSULTANTS: Dr. Jaren Martinez BRIEF HOSPITAL COURSE: Patient is a 57-year-old -[place] female, who presented with chief complaint of shortness of breath. History of present illness started 2 weeks prior to admission. Patient started to have cough. Cough was productive of greenish sputum. She also had chest tightness and wheezing. She was prescribed inhaler and antibiotics by her PMD. She had completed antibiotic course without any relief of symptoms. She denied fever or chills. Denied sick contacts, no recent travel .She has medical history significant for asthma , hypertension, psoriatic arthritis, obstructive sleep apnea and osteoarthritis. On evaluation at ED, blood work did not show any leukocytoses. Hemoglobin and hematocrit was stable. Creatinine kinase was elevated 865. Chest x-ray with no acute process. She continued to have wheezing and shortness of breath with a failed outpatient therapy. She required inpatient admission. She was started on IV antibiotics and was admitted for bronchitis. 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 She was given IV Solu-Medrol and was started empirically on Zosyn. Blood culture did not isolate any growth. Sputum culture showed normal upper respiratory tenisha. She had elevated CK. She was given IV hydration. Total CK eventually normalized. Psychiatric evaluation was done as patient was complaining of insomnia and hence ID. She was given Restoril at bedtime and Ativan prn. She was breathing better. Steroids were tapered. Symptoms improved. She was then discharged home. FINAL DIAGNOSES: Acute asthma exacerbation Acute bronchitis with failed outpatient therapy Acute rhabdomyolysis, resolved Morbid obesity Obstructive sleep apnea Psoriatic arthritis Chronic pain Anxiety disorder Insomnia DISPOSITION: Patient was discharged home. DISCHARGE MEDICATIONS: Refer to Discharge Medication List. DISCHARGE INSTRUCTIONS: Follow up within a week. I have been assigned to dictate discharge summary on this account, and I was not involved in the patient's management. Jaja Freeman NP Apr 22, 2018 11:32
== END 2018-04-21 18:18 | disposition home or self-care (01) | DRG 202 ==
LOC: EMR 14:44 → EDBEDREQ 16:03 → 3E 16:10 → EDBEDREQ 16:37
DX: J45.901 Unspecified asthma with (acute) exacerbation (principal); Z68.42 Body mass index [BMI] 45.0-49.9, adult; M62.82 Rhabdomyolysis; G47.33 Obstructive sleep apnea (adult) (pediatric); G89.29 Other chronic pain; L40.50 Arthropathic psoriasis, unspecified; M19.90 Unspecified osteoarthritis, unspecified site; I10 Essential (primary) hypertension; E66.01 Morbid (severe) obesity due to excess calories; F41.9 Anxiety disorder, unspecified; G47.00 Insomnia, unspecified; J20.9 Acute bronchitis, unspecified; Z96.659 Presence of unspecified artificial knee joint
CPT/HCPCS: 36415; 71045; 80048; 80053; 81003; 82550; 82553; 83690; 83880; 84484; 85025; 87040; 87070; 87081; 87205; 93005; 94640; 94664; 96365; 96368; 96375; 99285; J7620; J8499